=== PATIENT | female | born 1950 | race Caucasian/White ===

== ENCOUNTER → 2018-04-04 07:36 | Outpatient (CLI) | payer OTHER, SELFPAY ==
[2018-04-04 09:23] LABS: Add Manual Diff / Slide Review NO; Basophils Percent Auto 0.5 % (0-2); Eosinophils Percent Auto 3.2 % (2-4); Hematocrit 37.5 % (36-46); Hemoglobin 12.7 g/dL (12.0-16.0); Lymphocytes Percent Auto 43.6 % (25-40); Mean Corpuscular Hemoglobin 33.6 PG (26-34); Mean Corpuscular Volume 98.8 fL (80-100); Monocytes Percent Auto 10.9 % (3-14); Neutrophils Absolute Auto 2300 /uL (3000-5900); Neutrophils Percent Auto 41.8 % (50-75); Platelet Count 244 X10^3/uL (150-400); Red Blood Cell Count 3.79 X10^6/uL (4.0-5.2); Red Cell Distribution Width 13.7 % (11.6-14.8); White Blood Cell Count 5.5 X10^3/uL (4.5-11.0)
[2018-04-04 09:40] LABS: Alanine Aminotransferase 32 IU/L (9-52); Albumin 4.3 g/dL (3.5-5.0); Albumin Globulin Ratio 1.5 (1.0-2.8); Alkaline Phosphatase 66 U/L (38-126); Aspartate Aminotransferase 50 IU/L (14-36); BUN Creatinine Ratio 21.3 (6-22); Bilirubin Total 0.7 mg/dL (0.2-1.3); Blood Urea Nitrogen 17 mg/dL (7-17); Calcium 9.5 mg/dL (8.4-10.2); Carbon Dioxide 27 mmol/L (22-32); Chloride 105 mmol/L (98-107); Cholesterol 167 mg/dL (140-199); Estimated Glomerular Filt Rate > 60.0 mL/min (>60); Globulin 2.9 g/dL (1.7-4.1); Glucose 88 mg/dL (80-110); HDL Cholesterol 56 mg/dL (40-60); HEMOLYSIS < 15 (0-50); LDL Cholesterol Calculated 77 mg/dL (<100); Potassium 4.3 mmol/L (3.4-5.1); Sodium 141 mmol/L (137-145); Total Protein 7.2 g/dL (6.3-8.2); Triglycerides 171 mg/dL (35-150)
[2018-04-04 10:15] LABS: Thyroid Stimulating Hormone 3.42 uIU/mL (0.47-4.68)
== END ==
PROVIDERS: PCP Family Medicine; Visit Provider Family Medicine
DX: I48.2 Chronic atrial fibrillation (principal); I50.30 Unspecified diastolic (congestive) heart failure
CPT/HCPCS: 36415; 80053; 80061; 84443; 85025

== ENCOUNTER → 2018-11-21 09:09 | Outpatient (CLI) | payer OTHER, SELFPAY ==
--- NOTE | 2018-11-21 | DI.MG.S_ITS ---
BILATERAL DIGITAL SCREENING MAMMOGRAM 3D/2D WITH CAD: 11/21/2018 CLINICAL: Routine screening. Family history of breast cancer. Comparison is made to exams dated: 11/14/2016 mammogram, 10/05/2015 mammogram, 04/09/2014 mammogram, and 03/12/2013 mammogram - [facility]. The tissue of both breasts is heterogeneously dense. This may lower the sensitivity of mammography. Current study was also evaluated with a Computer Aided Detection (CAD) system. There is a mole marker on the left breast. No significant masses, calcifications, or other findings are seen in either breast. There has been no significant interval change. IMPRESSION: NEGATIVE There is no mammographic evidence of malignancy. A 1 year screening mammogram is recommended. This exam was interpreted at Station ID: [id number]. NOTE: For mammograms, a report in lay terms will be sent to the patient. Approximately 15% of breast malignancies will not be visualized mammographically. In the management of a palpable breast mass, a negative mammogram must not discourage biopsy of a clinically suspicious lesion. Electronically Signed By: Kevin magana/macario:11/21/2018 15:23:22 letter sent: Normal Exam ACR BI-RADS Category 1: Negative [id number]
== END ==
PROVIDERS: PCP Family Medicine; Visit Provider Family Medicine
DX: Z12.31 Encounter for screening mammogram for malignant neoplasm of breast (principal); Z80.3 Family history of malignant neoplasm of breast
CPT/HCPCS: 77063; 77067

== ENCOUNTER → 2019-04-17 07:42 | Outpatient (CLI) | payer OTHER, SELFPAY ==
[2019-04-17 09:47] LABS: Add Manual Diff / Slide Review NO; Basophils Absolute Auto 0 /uL (0-100); Basophils Percent Auto 0.5 % (0-2); Eosinophils Absolute Auto 100 /uL (0-450); Eosinophils Percent Auto 2.4 % (2-4); Hematocrit 38.8 % (36-46); Hemoglobin 13.2 g/dL (12.0-16.0); Lymphocytes Absolute Auto 2400 /uL (1100-4500); Lymphocytes Percent Auto 38.1 % (25-40); Mean Corpuscular HGB Conc 34.1 % (30-36); Mean Corpuscular Hemoglobin 33.1 PG (26-34); Mean Corpuscular Volume 96.9 fL (80-100); Monocytes Absolute Auto 700 /uL (0-900); Monocytes Percent Auto 11.5 % (3-14); Neutrophils Absolute Auto 2900 /uL (1500-7000); Neutrophils Percent Auto 47.5 % (50-75); Platelet Count 265 X10^3/uL (150-400); Red Blood Cell Count 4.01 X10^6/uL (4.0-5.2); Red Cell Distribution Width 13.8 % (11.6-14.8); White Blood Cell Count 6.2 X10^3/uL (4.5-11.0)
[2019-04-17 10:14] LABS: Alanine Aminotransferase 26 IU/L (9-52); Albumin 4.4 g/dL (3.5-5.0); Albumin Globulin Ratio 1.5 (1.0-2.8); Alkaline Phosphatase 87 U/L (38-126); Aspartate Aminotransferase 47 IU/L (14-36); BUN Creatinine Ratio 28.6 (6-22); Bilirubin Total 0.5 mg/dL (0.2-1.3); Blood Urea Nitrogen 20 mg/dL (7-17); Calcium 9.7 mg/dL (8.4-10.2); Carbon Dioxide 26 mmol/L (22-32); Chloride 105 mmol/L (98-107); Cholesterol 170 mg/dL (140-199); Estimated Glomerular Filt Rate > 60.0 mL/min (>60); Glucose 83 mg/dL (80-110); HDL Cholesterol 58 mg/dL (40-60); HEMOLYSIS < 15 (0-50); LDL Cholesterol Calculated 75 mg/dL (<100); Potassium 4.4 mmol/L (3.4-5.1); Sodium 140 mmol/L (137-145); Total Protein 7.4 g/dL (6.3-8.2); Triglycerides 183 mg/dL (35-150)
== END ==
PROVIDERS: PCP Family Medicine; Visit Provider Family Medicine
DX: E78.5 Hyperlipidemia, unspecified (principal); I10 Essential (primary) hypertension; Z79.899 Other long term (current) drug therapy
CPT/HCPCS: 36415; 80053; 80061; 84443; 85025

== ENCOUNTER → 2020-08-17 07:43 | Outpatient (CLI) | payer OTHER, SELFPAY ==
[2020-08-17 08:28] LABS: Add Manual Diff / Slide Review NO; Basophils Absolute Auto 0 /uL (0-100); Basophils Percent Auto 0.4 % (0-2); Eosinophils Absolute Auto 200 /uL (0-450); Eosinophils Percent Auto 3.6 % (2-4); Hematocrit 40.1 % (36-46); Hemoglobin 13.2 g/dL (12.0-16.0); Lymphocytes Absolute Auto 2500 /uL (1100-4500); Lymphocytes Percent Auto 48.4 % (25-40); Mean Corpuscular HGB Conc 32.9 % (30-36); Mean Corpuscular Hemoglobin 32.4 PG (26-34); Mean Corpuscular Volume 98.4 fL (80-100); Monocytes Absolute Auto 600 /uL (0-900); Monocytes Percent Auto 11.1 % (3-14); Neutrophils Absolute Auto 1900 /uL (1500-7000); Neutrophils Percent Auto 36.5 % (50-75); Platelet Count 285 X10^3/uL (150-400); Red Blood Cell Count 4.08 X10^6/uL (4.0-5.2); Red Cell Distribution Width 13.9 % (11.6-14.8); White Blood Cell Count 5.2 X10^3/uL (4.5-11.0)
[2020-08-17 09:04] LABS: Alanine Aminotransferase 24 IU/L (<35); Albumin 4.5 g/dL (3.5-5.0); Albumin Globulin Ratio 1.4 (1.0-2.8); Alkaline Phosphatase 86 U/L (38-126); Aspartate Aminotransferase 45 IU/L (14-36); BUN Creatinine Ratio 25.4 (6-22); Bilirubin Total 0.6 mg/dL (0.2-1.3); Blood Urea Nitrogen 18 mg/dL (7-17); Calcium 9.7 mg/dL (8.4-10.2); Carbon Dioxide 30 mmol/L (22-32); Chloride 102 mmol/L (98-107); Cholesterol 198 mg/dL (140-199); Estimated Glomerular Filt Rate > 60.0 mL/min (>60); Globulin 3.3 g/dL (1.7-4.1); Glucose 95 mg/dL (80-110); HDL Cholesterol 73 mg/dL (40-60); HEMOLYSIS < 15 (0-50); LDL Cholesterol Calculated 87 mg/dL (<100); Potassium 4.4 mmol/L (3.4-5.1); Sodium 136 mmol/L (137-145); Total Protein 7.8 g/dL (6.3-8.2); Triglycerides 188 mg/dL (35-150)
[2020-08-17 09:31] LABS: TSH w/ Reflex to FT4 3.05 uIU/mL (0.47-4.68)
== END ==
PROVIDERS: PCP Family Medicine; Referring Provider Family Medicine; Visit Provider Family Medicine
DX: E78.00 Pure hypercholesterolemia, unspecified (principal); I10 Essential (primary) hypertension; I48.0 Paroxysmal atrial fibrillation; M41.115 Juvenile idiopathic scoliosis, thoracolumbar region
CPT/HCPCS: 36415; 80053; 80061; 84443; 85025

== ENCOUNTER → 2020-09-09 09:40 | Outpatient (CLI) | payer OTHER, SELFPAY ==
--- NOTE | 2020-09-09 09:41 | DI.RAD.S_ITS ---
PROCEDURE: XR ANKLE LT MIN 3V INDICATIONS: left ankle pain TECHNIQUE: 3 views of the ankle were acquired. COMPARISON: None. FINDINGS: Bones: No fracture. Diffuse hindfoot and midfoot joint degeneration. Plantar and posterior calcaneal spurring. Tibiotalar joint degeneration and mild joint space narrowing. Soft tissues: Dystrophic calcifications project at the plantar aspect of the hindfoot and midfoot. IMPRESSION: Chronic and degenerative changes as above. No fracture. If the patient's symptoms do not improve recommend followup radiographs in 10 days to assess for healing sclerosis/occult injury. If the patient's pain or other symptoms persist, consider further evaluation with MRI Dictated by: Aaron Huntley M.D. on 09/09/2020 at 13:11 Approved by: Aaron Huntley M.D. on 09/09/2020 at 13:13
== END ==
PROVIDERS: PCP Family Medicine; Referring Provider Family Medicine; Visit Provider Family Medicine
DX: M25.572 Pain in left ankle and joints of left foot (principal)
CPT/HCPCS: 73610

== ENCOUNTER 2020-10-03 14:11 | Emergency (ER) | payer OTHER, SELFPAY ==
[2020-10-03 14:20] VITALS: BP 138/82; PULSE 74; RESP 14; TEMP 36.7; O2SAT 98; BMI 31.5
--- NOTE | 2020-10-03 14:26 | ED_ITS ---
HPI - Skin/Abscess/Foreign Bdy <NUBIA Nielson - Last Filed: 10/03/20 15:47> General Chief complaint: Skin/Abscess/Foreign Body Stated complaint: Rash On Legs, Moving Up Body Time Seen by Provider: 10/03/20 14:18 Source: patient Mode of arrival: Ambulatory Limitations: no limitations History of Present Illness HPI narrative: 69yo female with history of a hysterectomy, cholecystectomy, AFib (pacemaker, ablation, currently on Eliquis) and HLD, presents to the ED for a rash on her lower legs the continues to spread. She states this started approximately 2 days ago on her left lower leg. She noticed it spread to both legs, up toward her thighs, and is now below her breast on her arms bilaterally. She denies any itching, pain, or burning. Patient denies any excessive exercis e recently. She denies any other symptoms such as fever, chills, cough, nausea, vomiting, diarrhea, chest pain, shortness of breath, dizziness, syncope, bleeding, or any other concerns. Related Data Home Medications Medication Instructions Recorded Confirmed niacin 500 mg PO #0 02/28/17 10/03/20 acetaminophen [Tylenol Extra 500 mg PO Q6HP PRN #0 05/25/17 10/03/20 Strength] calcium 2 tab PO tab 05/16/18 10/03/20 carbonate,citrate-magnesium oxide 200 mg calcium-50 mg tablet omega-3 fatty acids 1,000 mg 1,000 mg PO DAILY 05/16/18 10/03/20 capsule amlodipine 5 mg tablet 5 mg PO DAILY tab 07/29/20 10/03/20 Previous Rx's Medication Instructions Recorded flecainide 50 mg PO BID #30 tab 01/03/18 metoprolol succinate [Toprol XL] 12.5 mg PO QDAY #30 tab 05/25/18 apixaban 5 mg tablet 5 mg PO BID #60 tab 02/26/20 lisinopril 20 1 tab PO DAILY #90 tab 07/29/20 mg-hydrochlorothiazide 25 mg tablet atorvastatin 20 mg tablet 20 mg PO HS #90 tab 07/31/20 Allergies Allergy/AdvReac Type Severity Reaction Status Date / Time No Known Drug Allergies Allergy Verified 10/03/20 14:24 Review of Systems <NUBIA Nielson - Last Filed: 10/03/20 15:47> Review of Systems Narrative: REVIEW OF SYSTEMS: GENERAL: Denies fever or chills. HENT: Denies headaches or rhinorrhea. EYE: Denies vision changes. MUSCULOSKELETAL: Denies trauma or pain. INTEGUMENTARY: Reports rash, see HPI. Patient History <NUBIA Nielson - Last Filed: 10/03/20 15:47> Medical History Chronic atrial fibrillation (03/28/17) Chronic systolic congestive heart failure (03/28/17) Essential hypertension (03/28/17) Headache Heart failure with preserved ejection fraction, NYHA class II Juvenile idiopathic scoliosis of thoracolumbar region (09/15/15) Paroxysmal atrial fibrillation (01/03/18) Pure hypercholesterolemia (09/15/15) Radiculopathy of cervical spine Surgical History Anesthesia History of hip replacement History of hip replacement History of knee replacement History of knee replacement Status post cholecystectomy Status post hysterectomy Torn rotator cuff (~2010) Family History Brother Age: 78 Pacemaker Hypertension High cholesterol Brother Age: 78 Hypertension High cholesterol Father Heart disease Mother High cholesterol Sister Age: 81 Hypertension High cholesterol Social History marital status: Smoking Status: Never smoker alcohol intake: current (ON OCCASION ) substance use type: does not use Smoking Status: Never smoker alcohol intake frequency: 0-2 drinks per day Substance Use Type: does not use Exam <NUBIA Nielson - Last Filed: 10/03/20 15:47> Initial Vital Signs Initial Vital Signs: Vital Signs Temperature 98.1 F 10/03/20 14:20 Pulse Rate 74 10/03/20 14:20 Respiratory Rate 14 10/03/20 14:20 Blood Pressure 138/82 10/03/20 14:20 Pulse Oximetry 98 10/03/20 14:20 PHYSICAL EXAMINATION: GENERAL: Awake and alert, answers questions promptly. HENT: Normocephalic, atraumatic. Ear canals patent. Oral mucosa is pink and moist. No bleeding from gums. EYES: Conjunctiva pink, sclera white, no periorbital swelling. CHEST: Normal to inspection and without deformities. CARDIOVASCULAR: S1 and S2 sounds normal. Irregular- Regular rate and rhythm, no murmurs, clicks, or bruits. No pedal edema. RESPIRATORY: Normal respiratory rate, trachea midline, airway patent. No stridor, nasal flaring or accessory muscle use. Lungs are clear in all maciel without wheeze, rhonchi, or crackles. GASTROINTESTINAL: Bowel sounds normoactive. Abdomen is soft and non-tender. No organomegaly. MUSCULOSKELETAL: Normal gait and coordination. Equal tone and mass bilaterally. EXTREMITIES: CMS intact. Moves all extremities. Pedal pulses 2+ and equal bilaterally, no significant pedal edema. SKIN: Warm, dry, soft. Diffuse nonblanching petechiae noted to lower extremities, larger consultation of petechiae noticed to lower legs, small amout extends below sock line. Petechiae does extend up past knees and into thighs. Light petechiae noted on in her arms bilaterally and chest. No petechiae on abdomen. No pain to palpation of these areas, no significant swelling. NEURO: Alert and Oriented X 3. Good coordination. No ataxia, or sensory deficits, or cognitive issues. PSYCH: Appropriate affect and mood. NEURO: Alert and Oriented X 3. Good coordination. PSYCH: Appropriate affect and mood. <Julián River DO - Last Filed: 10/03/20 16:14> Initial Vital Signs Initial Vital Signs: Vital Signs Temperature 98.1 F 10/03/20 14:20 Pulse Rate 74 10/03/20 14:20 Respiratory Rate 14 10/03/20 14:20 Blood Pressure 138/82 10/03/20 14:20 Pulse Oximetry 98 10/03/20 14:20 Course <NUBIA Nielson - Last Filed: 10/03/20 15:47> Orders Ordered: ED Orders 10/03/20 14:28 Complete Blood Count AUTO DIFF Stat Comprehensive Metabolic Panel Stat PTT [Partial Thromboplastin Time] Stat Prothrombin Time INR Stat Consultations Consultation #1: Consulted with Dr. River discussed test, test results, plan of care. Vital Signs Vital signs: Vital Signs - 8 hr 10/03/20 14:20 10/03/20 15:26 Temperature 98.1 F Pulse Rate 74 65 Respiratory Rate 14 16 Blood Pressure 138/82 140/70 Pulse Oximetry 98 98 <Julián HandleycherDO - Last Filed: 10/03/20 16:14> Orders Ordered: ED Orders 10/03/20 14:28 Complete Blood Count AUTO DIFF Stat Comprehensive Metabolic Panel Stat PTT [Partial Thromboplastin Time] Stat Prothrombin Time INR Stat Vital Signs Vital signs: Vital Signs - 8 hr 10/03/20 14:20 10/03/20 15:26 Temperature 98.1 F Pulse Rate 74 65 Respiratory Rate 14 16 Blood Pressure 138/82 140/70 Pulse Oximetry 98 98 MDM - Skin/Abscess/Foreign Bdy <Federica NUBIA Bower - Last Filed: 10/03/20 15:47> Medical Records Attestation: I reviewed the patient's medical records. Lab Data Attestation: I reviewed the patient's lab results. Result diagrams: 10/03/20 14:28 10/03/20 14:28 Labs: Lab Results 10/03/20 10/03/20 10/03/20 Range/Units 14:28 14:28 14:28 WBC 8.1 (4.5-11.0) X10^3/uL RBC 4.01 (4.0-5.2) X10^6/uL Hgb 13.2 (12.0-16.0) g/dL Hct 39.4 (36-46) % MCV 98.3 (80-100) fL MCH 33.0 (26-34) PG MCHC 33.6 (30-36) % RDW 14.3 (11.6-14.8) % Plt Count 278 (150-400) X10^3/uL Neut % (Auto) 44.3 L (50-75) % Lymph % (Auto) 41.3 H (25-40) % [place] % (Auto) 10.2 (3-14) % Eos % (Auto) 3.4 (2-4) % Baso % (Auto) 0.8 (0-2) % Neut # (Auto) 3600 (6331-4904) /uL Lymph # (Auto) 3400 (8774-5268) /uL [place] # (Auto) 800 (0-900) /uL Eos # (Auto) 300 (0-450) /uL Baso # (Auto) 100 (0-100) /uL PT 13.1 H (10.1-12.7) SECONDS INR 1.1 (0.9-1.3) APTT 41 H (26.4-36.2) SECONDS Sodium 136 L (137-145) mmol/L Potassium 4.1 (3.4-5.1) mmol/L Chloride 101 (98-107) mmol/L Carbon Dioxide 26 (22-32) mmol/L BUN 17 (7-17) mg/dL Creatinine 0.69 (0.52-1.04) mg/dL Estimated GFR > 60.0 (>60) mL/min BUN/Creatinine Ratio 24.6 H (6-22) Glucose 100 (80-110) mg/dL Calcium 9.6 (8.4-10.2) mg/dL Total Bilirubin 0.4 (0.2-1.3) mg/dL AST 48 H (14-36) IU/L ALT 26 (<35) IU/L Alkaline Phosphatase 97 (38-126) U/L Total Protein 8.0 (6.3-8.2) g/dL Albumin 4.8 (3.5-5.0) g/dL Globulin 3.2 (1.7-4.1) g/dL Albumin/Globulin Ratio 1.5 (1.0-2.8) MDM Narrative Medical decision making narrative: 69-year-old female currently and others, presented to the emergency department for petechiae or rashes the past 2 days. I am unsure the exact cause of this. Less likely ITP, leukemia or other clotting disorder due to normal labs. Less likely lupus, cytomegalovirus, or other viral etiology due to lack of other symptoms such as rhinorrhea, headache, swollen joints, fatigue, or other laboratory abnormalities. Differential also includes exercise/heat-induced purpura, but less likely as patient does not report any significant exercise or being exposed increased heat such as hot tub use. Patient is well-appearing, hemodynamically stable without fever or tachycardia. She was encouraged to follow up with her primary care provider in the next 1-2 weeks for further evaluation. ED precautions given for new or worsening symptoms. She agreed to plan of care verbalized understanding. <Julián River DO - Last Filed: 10/03/20 16:14> Lab Data Labs: Lab Results 10/03/20 10/03/20 10/03/20 Range/Units 14:28 14:28 14:28 WBC 8.1 (4.5-11.0) X10^3/uL RBC 4.01 (4.0-5.2) X10^6/uL Hgb 13.2 (12.0-16.0) g/dL Hct 39.4 (36-46) % MCV 98.3 (80-100) fL MCH 33.0 (26-34) PG MCHC 33.6 (30-36) % RDW 14.3 (11.6-14.8) % Plt Count 278 (150-400) X10^3/uL Neut % (Auto) 44.3 L (50-75) % Lymph % (Auto) 41.3 H (25-40) % [place] % (Auto) 10.2 (3-14) % Eos % (Auto) 3.4 (2-4) % Baso % (Auto) 0.8 (0-2) % Neut # (Auto) 3600 (6156-8394) /uL Lymph # (Auto) 3400 (2299-5103) /uL [place] # (Auto) 800 (0-900) /uL Eos # (Auto) 300 (0-450) /uL Baso # (Auto) 100 (0-100) /uL PT 13.1 H (10.1-12.7) SECONDS INR 1.1 (0.9-1.3) APTT 41 H (26.4-36.2) SECONDS Sodium 136 L (137-145) mmol/L Potassium 4.1 (3.4-5.1) mmol/L Chloride 101 (98-107) mmol/L Carbon Dioxide 26 (22-32) mmol/L BUN 17 (7-17) mg/dL Creatinine 0.69 (0.52-1.04) mg/dL Estimated GFR > 60.0 (>60) mL/min BUN/Creatinine Ratio 24.6 H (6-22) Glucose 100 (80-110) mg/dL Calcium 9.6 (8.4-10.2) mg/dL Total Bilirubin 0.4 (0.2-1.3) mg/dL AST 48 H (14-36) IU/L ALT 26 (<35) IU/L Alkaline Phosphatase 97 (38-126) U/L Total Protein 8.0 (6.3-8.2) g/dL Albumin 4.8 (3.5-5.0) g/dL Globulin 3.2 (1.7-4.1) g/dL Albumin/Globulin Ratio 1.5 (1.0-2.8) Discharge Plan Departure Patient Disposition: Home Clinical Impression: Petechial rash Instructions: DI for Rash Activity Restrictions/Additional Instructions: Thank you for entrusting me with your care today. As discussed, your laboratory work is non-remarkable. I am unsure the exact cause of your rash. However, I suggest avoiding hot showers and baths for the next few days. Elevate your legs as much as possible. Please call your primary care provider until then you have been seen in the emergency department. Schedule follow-up in the next 1-2 weeks. Return emergency department for any new or worsening symptoms such as bleeding, pain, vomiting, or any other concerns. Prescriptions: No Action amlodipine 5 mg tablet 5 mg PO DAILY RF: 0 lisinopril-hydrochlorothiazide 20-25 mg tablet 1 tab PO DAILY Qty: 90 RF: 3 niacin 500 MG tablet 500 mg PO Qty: 0 RF: 0 acetaminophen [Tylenol Extra Strength] 500 MG tablet 500 mg PO Q6HP PRNQty: 0 RF: 0 flecainide 50 MG tablet 50 mg PO BID Qty: 30 RF: 0 metoprolol succinate [Toprol XL] 25 mg tablet extended release 24 hr 12.5 mg PO QDAY Qty: 30 RF: 1 Eliquis 5 mg tablet 5 mg PO BID Qty: 60 RF: 11 atorvastatin [Lipitor] 20 mg tablet 20 mg PO HS Qty: 90 RF: 1 omega-3 fatty acids [Fish Oil Concentrate] 1,000 mg capsule 1,000 mg PO DAILY RF: 0 calcium carb and citrat-mag ox 200 mg calcium- 50 mg tablet 2 tab PO RF: 0 Referrals: Alonso Cervantes MD [Primary Care Provider] - <Julián River DO - Last Filed: 10/03/20 16:14> Cosign ED Attending Cosignature Attestation: Dr River Co-Sign Statement: I was available for consultation during this patient's emergency department visit. This chart is signed by myself for administrative purposes only. I did not have direct contact with this patient during this visit. They were seen independently by the APC.
[2020-10-03 14:38] LABS: Add Manual Diff / Slide Review NO; Basophils Absolute Auto 100 /uL (0-100); Basophils Percent Auto 0.8 % (0-2); Eosinophils Absolute Auto 300 /uL (0-450); Eosinophils Percent Auto 3.4 % (2-4); Hematocrit 39.4 % (36-46); Hemoglobin 13.2 g/dL (12.0-16.0); Lymphocytes Absolute Auto 3400 /uL (1100-4500); Lymphocytes Percent Auto 41.3 % (25-40); Mean Corpuscular HGB Conc 33.6 % (30-36); Mean Corpuscular Volume 98.3 fL (80-100); Monocytes Absolute Auto 800 /uL (0-900); Monocytes Percent Auto 10.2 % (3-14); Neutrophils Absolute Auto 3600 /uL (1500-7000); Neutrophils Percent Auto 44.3 % (50-75); Platelet Count 278 X10^3/uL (150-400); Red Blood Cell Count 4.01 X10^6/uL (4.0-5.2); Red Cell Distribution Width 14.3 % (11.6-14.8); White Blood Cell Count 8.1 X10^3/uL (4.5-11.0)
[2020-10-03 14:47] LABS: INR 1.1 (0.9-1.3); Prothrombin Time 13.1 SECONDS (10.1-12.7)
[2020-10-03 14:50] LABS: Alanine Aminotransferase 26 IU/L (<35); Albumin 4.8 g/dL (3.5-5.0); Albumin Globulin Ratio 1.5 (1.0-2.8); Alkaline Phosphatase 97 U/L (38-126); Aspartate Aminotransferase 48 IU/L (14-36); BUN Creatinine Ratio 24.6 (6-22); Bilirubin Total 0.4 mg/dL (0.2-1.3); Blood Urea Nitrogen 17 mg/dL (7-17); Calcium 9.6 mg/dL (8.4-10.2); Carbon Dioxide 26 mmol/L (22-32); Chloride 101 mmol/L (98-107); Estimated Glomerular Filt Rate > 60.0 mL/min (>60); Globulin 3.2 g/dL (1.7-4.1); Glucose 100 mg/dL (80-110); HEMOLYSIS < 15 (0-50); PTT Partial Thromboplastin Tim 41 SECONDS (26.4-36.2); Potassium 4.1 mmol/L (3.4-5.1); Sodium 136 mmol/L (137-145)
[2020-10-03 15:26] VITALS: BP 140/70; PULSE 65; RESP 16; O2SAT 98
== END 2020-10-03 15:27 | disposition home or self-care (01) ==
PROVIDERS: Emergency Provider Nurse Practitioner; PCP Family Medicine
DX: R23.3 Spontaneous ecchymoses (principal); I48.91 Unspecified atrial fibrillation; Z79.01 Long term (current) use of anticoagulants
CPT/HCPCS: 36415; 80053; 85025; 85610; 85730; 99281; 99283

== ENCOUNTER 2021-02-27 11:31 | Emergency (ER) | payer OTHER, SELFPAY ==
[2021-02-27 11:40] VITALS: BP 186/91; PULSE 70; RESP 16; TEMP 36.7; O2SAT 98; BMI 32.1
--- NOTE | 2021-02-27 11:42 | ED.GENADULT ---
HPI - General Adult General Chief complaint: Fall Stated complaint: Ground level fall today Time Seen by Provider: 02/27/21 11:42 History of Present Illness HPI narrative: 70-year-old woman with a history of coronary artery disease, chronic atrial fibrillation currently anticoagulated on apixaban, hypertension, hyperlipidemia who presents after falling today. She reports that she was out walking her dog and was distracted by talking with her friend stumbled over the cement and fell forward. She was unable to compensate and landed fully on her lower chin and her upper lip. She did not lose consciousness. She notes chin upper lip jaw and neck pain. She was able to get herself off the ground into the emergency department. She has no noting some mild midsternal/sternum pain without dyspnea. She describes chronic shoulder pain that does not seem to be worse than her baseline. No hip, low back, pelvis, knee ankle elbow or wrist pain appreciated. Related Data Home Medications Medication Instructions Recorded Confirmed niacin 500 mg PO #0 02/28/17 02/25/21 acetaminophen [Tylenol Extra 500 mg PO Q6HP PRN #0 05/25/17 02/25/21 Strength] calcium 2 tab PO tab 05/16/18 02/25/21 carbonate,citrate-magnesium oxide 200 mg calcium-50 mg tablet omega-3 fatty acids 1,000 mg 1,000 mg PO DAILY 05/16/18 02/25/21 capsule Previous Rx's Medication Instructions Recorded flecainide 50 mg PO BID #30 tab 01/03/18 metoprolol succinate [Toprol XL] 12.5 mg PO QDAY #30 tab 05/25/18 lisinopril 20 1 tab PO DAILY #90 tab 07/29/20 mg-hydrochlorothiazide 25 mg tablet atorvastatin 20 mg tablet See Rx Instructions .ROUTE 01/29/21 .COMPLEX #90 tab apixaban 5 mg tablet 5 mg PO BID #60 tab 02/09/21 oxycodone-acetaminophen 1 tab PO Q6H PRN 7 Days #20 tab 02/27/21 Allergies Allergy/AdvReac Type Severity Reaction Status Date / Time No Known Drug Allergies Allergy Verified 02/27/21 11:42 Review of Systems Review of Systems Narrative: Pertinent positive and negative findings as per HPI Remainder of review of systems is otherwise unremarkable for Constitutional: Fevers, chills, weakness ENT: No sore throat, neck pain, ear pain CV: Chest pain, palpitations, Respiratory: Cough, wheeze, dyspnea GI: Nausea, vomiting, diarrhea, : Dysuria, hematuria, Patient History Medical History Chronic atrial fibrillation (03/28/17) Chronic systolic congestive heart failure (03/28/17) Essential hypertension (03/28/17) Headache Heart failure with preserved ejection fraction, NYHA class II Juvenile idiopathic scoliosis of thoracolumbar region (09/15/15) Paroxysmal atrial fibrillation (01/03/18) Pure hypercholesterolemia (09/15/15) Radiculopathy of cervical spine Surgical History Anesthesia History of hip replacement History of hip replacement History of knee replacement History of knee replacement Status post cholecystectomy Status post hysterectomy Torn rotator cuff (~2010) Family History Brother Age: 79 Pacemaker Hypertension High cholesterol Brother Age: 79 Hypertension High cholesterol Father Heart disease Mother High cholesterol Sister Age: 82 Hypertension High cholesterol Social History marital status: Smoking Status: Never smoker alcohol intake: current (ON OCCASION ) substance use type: does not use Smoking Status: Never smoker alcohol intake frequency: 0-2 drinks per day Substance Use Type: does not use Exam Narrative Exam Narrative: General: Mild distress secondary to upper lip swelling and pain. Able to give a complete and coherent history. Well-nourished well-developed HEENT: Moist mucous membranes, normal sclera with reactive pupils, upper lip with an abrasion on the buccal surface midline but no actual laceration. Dentition is intact. Moderate swelling. Tender along the entire mandible including bilateral TMJ joints. No bruising or ecchymosis under the tongue. No skull tenderness to palpation. Minor abrasion just under the mentum, no laceration Neck: Significant midline tenderness at C2 and C3 with moderate tenderness at bilateral occipital insertions and C4-5 and 6. Respiratory: Lungs are clear to auscultation, no wheezing no rales no rhonchi. Full and symmetrical air movement Cardiac: Regular rate and rhythm no murmurs no bruits Abdomen: Soft, nontender, good bowel tones, no flank pain Skin: Warm and dry, no rashes Neurologic: Grossly neurologically intact with no obvious asymmetries or abnormalities Extremities: No trauma to upper or lower extremities Psych: Cooperative, appropriate insight and affect Initial Vital Signs Initial Vital Signs: Vital Signs Temperature 98.0 F 02/27/21 11:40 Pulse Rate 70 02/27/21 11:40 Respiratory Rate 16 02/27/21 11:40 Blood Pressure 186/91 H 02/27/21 11:40 Pulse Oximetry 98 02/27/21 11:40 Course Orders Ordered: ED Orders 02/27/21 11:51 XR chest 2V Stat 02/27/21 11:52 CT cervical spine wo con Stat CT facial bones wo con Stat CT head/brain wo con Stat Discontinued Medications Oxycodone/Acetaminophen (Oxycodone/Acetaminophen 5/325 Tablet) 1 tab PO NOW ONE Stop: 02/27/21 11:52 Last Admin: 02/27/21 11:57 Dose: 1 tab Documented by: HUNTER Vital Signs Vital signs: Vital Signs - 8 hr 02/27/21 11:40 Temperature 98.0 F Pulse Rate 70 Respiratory Rate 16 Blood Pressure 186/91 H Pulse Oximetry 98 Medical Decision Making Medical Records Medical records reviewed: Yes I reviewed the patient's medical records. Lab Data Lab results reviewed: Yes I reviewed the patient's lab results. Imaging Data Head CT: Radiologist's Impression: FINDINGS: Image quality: Excellent. CSF spaces: Basal cisterns are patent. No extra-axial fluid collections. Ventricles are normal in size and shape. Brain: No midline shift. No intracranial masses or hemorrhage. Salguero-white matter interface is normal. Skull and face: Calvarium and visualized facial bones are intact, without suspicious lesions. Sinuses: Visualized sinuses and mastoids are clear. IMPRESSION: Negative for acute stroke, hemorrhage, or mass. No evidence of significant intracranial sequelae of acute trauma. Dictated by: Randall Quiros M.D. on 02/27/2021 at 11:[address]: Radiologist's Impression: INDINGS: Image quality: Metal artifact from teeth. Otherwise excellent. Bones and teeth: Orbital mario are intact. Sinus mario show no fracture or deformity. Nasal bones and septum are intact. Visualized portions of the mandible demonstrate no fractures or subluxation. Zygomatic arches are intact. Pterygoid plates are intact. Visualized portions of the skull base and auditory canals are intact. Sinuses: Paranasal sinuses are aerated, without fluid levels, mucosal thickening, or mucoceles. Mastoid air cells are aerated. Soft tissues: No edema, masses, or fluid collections. No enlarged lymph nodes. No soft tissue lacerations or debris. Vascular: Visualized vascular structures appear normal in the absence of contrast. Bony vascular foramina and canals are intact. IMPRESSION: No evidence of displaced facial bone fracture or mandibular fracture. Dictated by: Randall Quiros M.D. on 02/27/2021 at 12:03 CT - cervical spine: Radiologist's Impression: FINDINGS: Image quality: Excellent. Bones: No fractures or dislocations. Visualized superior ribs are intact. Prominent hypertrophic right C2-C3 facet arthropathy. Uncovertebral joint osteophytes narrow the bony foramina of C3-C4 through C5-C6. Soft tissues: Prevertebral soft tissues are normal in thickness. No paravertebral hematomas. No apical pneumothoraces. IMPRESSION: No evidence of cervical fracture or dislocation. Cervical spondylitic change. Dictated by: Randall Quiros M.D. on 02/27/2021 at 12:05 Chest x-ray: Radiologist's Impression: FINDINGS: Surgical changes and devices: Pacemaker, placed since the previous study. Lungs and pleura: Lungs are clear. No pleural effusions or pneumothorax. Mediastinum: Mediastinal contours are normal. Heart size is normal. Bones and chest wall: No suspicious bony abnormalities. Soft tissues appear unremarkable. IMPRESSION: No evidence acute pulmonary process. Dictated by: Randall Quiros M.D. on 02/27/2021 at 12:01 [facility] Narrative Medical decision making narrative: Emergency Medicine: Utilization of CT for Minor Blunt Head Trauma (Adult) Patient is 18 or older, presenting with minor blunt head trauma. Head CT was ordered by an emergency personal care worker for trauma because Reasons: Patient is 65 or older Patient taking anticoagulant medication 70 year old woman with mechanical fall landing forward on her chin. She is on Eliquis for paroxysmal atrial fibrillation. She is having jaw pain neck pain and sternal pain. Imaging of all of those areas is unremarkable. CT scan of the brain does not show any intracranial bleeding. Her pain was moderately well controlled with a single Percocet as well as an ice pack. Did review anticipatory guidance for expected healing including the fact that she will hurt more tomorrow. Questions are answered. There is no evidence of additional trauma and she is safe for home discharge Discharge Plan Departure Patient Disposition: Home Clinical Impression: Fall Qualifiers: Encounter type: initial encounter Qualified Code(s): W19.XXXA - Unspecified fall, initial encounter Chin contusion Qualifiers: Encounter type: initial encounter Qualified Code(s): S00.83XA - Contusion of other part of head, initial encounter Contusion of lip Qualifiers: Encounter type: initial encounter Qualified Code(s): S00.531A - Contusion of lip, initial encounter Strain of neck Qualifiers: Encounter type: initial encounter Qualified Code(s): S16.1XXA - Strain of muscle, fascia and tendon at neck level, initial encounter Contusion of sternum Qualifiers: Encounter type: initial encounter Qualified Code(s): S20.219A - Contusion of unspecified front wall of thorax, initial encounter Instructions: DI for Contusion Activity Restrictions/Additional Instructions: Thank you for coming in today You did not break anything today. The abrasions to your chin and your upper lip are going to heal nicely. I would expect that your jaw joints are going to hurt more tomorrow. There is no bleeding inside her brain. You did not break any bones in your neck. After this hard to fall, it is always worse in the next 24-48 hours. Please keep as active in mobile as you can. For pain you can use Tylenol or 1-2 Percocet for severe pain. When you are using Percocet I would recommend a stool softener. Narcotics always cause constipation. Please continue all of your other medications as scheduled I hope you heal quickly Prescriptions: New oxycodone-acetaminophen 5-325 mg tablet 1 tab PO Q6H PRN (Reason: pain) 7 Days Qty: 20 RF: 0 No Action lisinopril-hydrochlorothiazide 20-25 mg tablet 1 tab PO DAILY Qty: 90 RF: 3 niacin 500 MG tablet 500 mg PO Qty: 0 RF: 0 acetaminophen [Tylenol Extra Strength] 500 MG tablet 500 mg PO Q6HP PRNQty: 0 RF: 0 flecainide 50 MG tablet 50 mg PO BID Qty: 30 RF: 0 metoprolol succinate [Toprol XL] 25 mg tablet extended release 24 hr 12.5 mg PO QDAY Qty: 30 RF: 1 atorvastatin 20 mg tablet See Rx Instructions .ROUTE .COMPLEX Qty: 90 RF: 2 Eliquis 5 mg tablet 5 mg PO BID Qty: 60 RF: 3 omega-3 fatty acids [Fish Oil Concentrate] 1,000 mg capsule 1,000 mg PO DAILY RF: 0 calcium carb and citrat-mag ox 200 mg calcium- 50 mg tablet 2 tab PO RF: 0 Referrals: Alonso Cervantes MD [Primary Care Provider] -
--- NOTE | 2021-02-27 11:51 | DI.RAD.S_ITS ---
PROCEDURE: XR CHEST 2V INDICATIONS: fall forward, noting sternal pain TECHNIQUE: 2 views of the chest were acquired. COMPARISON: [facility], , CHEST 2 VIEW, 02/28/2017, 16:29. FINDINGS: Surgical changes and devices: Pacemaker, placed since the previous study. Lungs and pleura: Lungs are clear. No pleural effusions or pneumothorax. Mediastinum: Mediastinal contours are normal. Heart size is normal. Bones and chest wall: No suspicious bony abnormalities. Soft tissues appear unremarkable. IMPRESSION: No evidence acute pulmonary process. Dictated by: Randall Quiros M.D. on 02/27/2021 at 12:01 Approved by: Randall Quiros M.D. on 02/27/2021 at 12:02
--- NOTE | 2021-02-27 11:52 | DI.CT.S_ITS ---
PROCEDURE: CT CERVICAL SPINE WO CON INDICATIONS: fall landing on chin, pain C2 and C3 TECHNIQUE: Noncontrast 3 mm thick sections acquired from the skull base to the T4 level. Sagittal and coronal reformats were then constructed. For radiation dose reduction, the following was used: automated exposure control, adjustment of mA and/or kV according to patient size. COMPARISON: [facility], CT, C-SPINE WITHOUT CONTRAST, 08/12/2010, 15:53. FINDINGS: Image quality: Excellent. Bones: No fractures or dislocations. Visualized superior ribs are intact. Prominent hypertrophic right C2-C3 facet arthropathy. Uncovertebral joint osteophytes narrow the bony foramina of C3-C4 through C5-C6. Soft tissues: Prevertebral soft tissues are normal in thickness. No paravertebral hematomas. No apical pneumothoraces. IMPRESSION: No evidence of cervical fracture or dislocation. Cervical spondylitic change. Dictated by: Randall Quiros M.D. on 02/27/2021 at 12:05 Approved by: Randall Quiros M.D. on 02/27/2021 at 12:07
--- NOTE | 2021-02-27 11:52 | DI.CT.S_ITS ---
PROCEDURE: CT FACIAL BONES WO CON INDICATIONS: fall landing on chin, bilateral jaw and TMJ pain TECHNIQUE: Noncontrast 2.5 mm thick axial images acquired from the mandible through the frontal sinuses, with coronal and sagittal reformatting. For radiation dose reduction, the following was used: automated exposure control, adjustment of mA and/or kV according to patient size. COMPARISON: [facility], CT, FACIAL BONES WO CONTRAST, 08/12/2010, 15:53. FINDINGS: Image quality: Metal artifact from teeth. Otherwise excellent. Bones and teeth: Orbital mario are intact. Sinus mario show no fracture or deformity. Nasal bones and septum are intact. Visualized portions of the mandible demonstrate no fractures or subluxation. Zygomatic arches are intact. Pterygoid plates are intact. Visualized portions of the skull base and auditory canals are intact. Sinuses: Paranasal sinuses are aerated, without fluid levels, mucosal thickening, or mucoceles. Mastoid air cells are aerated. Soft tissues: No edema, masses, or fluid collections. No enlarged lymph nodes. No soft tissue lacerations or debris. Vascular: Visualized vascular structures appear normal in the absence of contrast. Bony vascular foramina and canals are intact. IMPRESSION: No evidence of displaced facial bone fracture or mandibular fracture. Dictated by: Randall Quiros M.D. on 02/27/2021 at 12:03 Approved by: Randall Quiros M.D. on 02/27/2021 at 12:05
--- NOTE | 2021-02-27 11:52 | DI.CT.S_ITS ---
PROCEDURE: CT HEAD/BRAIN WO CON INDICATIONS: fall, landing on chin, anticoagulated on apixaban TECHNIQUE: Noncontrast 4.5 mm thick angled axial sections acquired from the foramen magnum to the vertex, with coronal and sagittal reformats. For radiation dose reduction, the following was used: automated exposure control, adjustment of mA and/or kV according to patient size. COMPARISON: None. FINDINGS: Image quality: Excellent. CSF spaces: Basal cisterns are patent. No extra-axial fluid collections. Ventricles are normal in size and shape. Brain: No midline shift. No intracranial masses or hemorrhage. Salguero-white matter interface is normal. Skull and face: Calvarium and visualized facial bones are intact, without suspicious lesions. Sinuses: Visualized sinuses and mastoids are clear. IMPRESSION: Negative for acute stroke, hemorrhage, or mass. No evidence of significant intracranial sequelae of acute trauma. Dictated by: Randall Quiros M.D. on 02/27/2021 at 11:57 Approved by: Randall Quiros M.D. on 02/27/2021 at 11:59
--- NOTE | 2021-02-27 11:53 | PC.NURSE ---
Placed in cervical hard collar
[2021-02-27] MEDS: OXYCODONE/ACETAMINOPHEN 5/325 TABLET 1 TAB PO (11:57)
--- NOTE | 2021-02-27 13:55 | PC.NURSE ---
c collar cleared by Dr De La Fuente
[2021-02-27 14:26] VITALS: BP 162/78; PULSE 76; RESP 14; O2SAT 99
== END 2021-02-27 14:27 | disposition home or self-care (01) ==
PROVIDERS: Emergency Provider Emergency Medicine; PCP Family Medicine
DX: R07.89 Other chest pain (principal); S00.83XA Contusion of other part of head, initial encounter; S00.531A Contusion of lip, initial encounter; S16.1XXA Strain of muscle, fascia and tendon at neck level, initial encounter; S20.219A Contusion of unspecified front wall of thorax, initial encounter; W19.XXXA Unspecified fall, initial encounter; Z79.01 Long term (current) use of anticoagulants
CPT/HCPCS: 70450; 70486; 71046; 72125; 99284

== ENCOUNTER 2021-06-13 09:00 | Emergency (ER) | payer OTHER, SELFPAY ==
[2021-06-13] VITALS (7 sets, daily range): BP systolic 107–143; BP diastolic 56–67; PULSE 69–80; RESP 17–21; TEMP 36.1–36.6; O2SAT 95–100; BMI 32.3
--- NOTE | 2021-06-13 09:35 | ED.GENADULT ---
HPI - General Adult General Chief complaint: Dizziness Stated complaint: very low blood pressure since this morning Time Seen by Provider: 06/13/21 09:12 Source: patient and other Mode of arrival: Ambulatory Limitations: no limitations History of Present Illness HPI narrative: Patient is 70-year-old female history of atrial fibrillation on Eliquis and a pacemaker presenting today with low blood pressure. She woke up this morning and has had at least 10 episodes of nonbloody watery diarrhea. She got up to feed the dog she felt a little dizzy lightheaded and foggy. She took her blood pressure shows a systolic in the 80s. She rechecked it later it remained in the 80s she then called and use her neighbors blood pressure cough and was also low. At which point she and her neighbor walked to the emergency department. Her blood pressure is now within normal limits at 143/65. She has no chest pain or palpitations no dizziness lightheadedness weakness numbness or tingling. Related Data Home Medications Medication Instructions Recorded Confirmed niacin 500 mg tablet 500 mg PO #0 02/28/17 02/25/21 acetaminophen 500 mg tablet 500 mg PO Q6HP PRN #0 05/25/17 02/25/21 (Tylenol Extra Strength) calcium 2 tab PO tab 05/16/18 02/25/21 carbonate,citrate-magnesium oxide 200 mg calcium-50 mg tablet omega-3 fatty acids 1,000 mg 1,000 mg PO DAILY 05/16/18 02/25/21 capsule (Fish Oil Concentrate) Previous Rx's Medication Instructions Recorded flecainide 50 mg tablet 50 mg PO BID #30 tab 01/03/18 metoprolol succinate 25 mg 12.5 mg PO QDAY #30 tab 05/25/18 tablet,extended release 24 hr (Toprol XL) lisinopril 20 1 tab PO DAILY #90 tab 07/29/20 mg-hydrochlorothiazide 25 mg tablet atorvastatin 20 mg tablet See Rx Instructions .ROUTE 01/29/21 .COMPLEX #90 tab apixaban 5 mg tablet (Eliquis) 5 mg PO BID #60 tab 06/07/21 Allergies Allergy/AdvReac Type Severity Reaction Status Date / Time No Known Drug Allergies Allergy Verified 02/27/21 11:42 Review of Systems Review of Systems Narrative: GENERAL: Denies chills, fatigue, malaise, fever, sweats, travel HEENT: Denies sinus pain, ear pain, sore throat, difficulty swallowing, neck pain RESPIRATORY: Denies dyspnea, cough, wheezing, hemoptysis, sputum. CARDIOVASCULAR: Denies chest pain, palpitations, orthopnea, edema GASTROINTESTINAL: + diarrhea Denies nausea, vomiting, abdominal pain, constipation, melena. : Denies dysuria, frequency, incontinence, hematuria, urinary retention, flank pain. MUSCULOSKELETAL: Denies weakness, joint pain, or bony pain SKIN: No rash, no erythema, no pruritus NEUROLOGIC: See HPI PSYCHIATRIC: No concerning psychosocial issues. 12 point review of systems is negative except for those stated above and HPI Patient History Medical History Chronic atrial fibrillation (03/28/17) Chronic systolic congestive heart failure (03/28/17) Essential hypertension (03/28/17) Headache Heart failure with preserved ejection fraction, NYHA class II Juvenile idiopathic scoliosis of thoracolumbar region (09/15/15) Paroxysmal atrial fibrillation (01/03/18) Pure hypercholesterolemia (09/15/15) Radiculopathy of cervical spine Surgical History Anesthesia History of hip replacement History of hip replacement History of knee replacement History of knee replacement Status post cholecystectomy Status post hysterectomy Torn rotator cuff (~2010) Family History Brother Age: 79 Pacemaker Hypertension High cholesterol Brother Age: 79 Hypertension High cholesterol Father Heart disease Mother High cholesterol Sister Age: 82 Hypertension High cholesterol Social History marital status: Smoking Status: Never smoker alcohol intake: current (ON OCCASION ) substance use type: does not use Smoking Status: Never smoker alcohol intake frequency: 0-2 drinks per day Substance Use Type: does not use Exam Initial Vital Signs Initial Vital Signs: Vital Signs Pulse Rate 80 06/13/21 09:04 Pulse Oximetry 96 06/13/21 09:04 GENERAL: Alert well-appearing 70-year-old and in no acute distress. HEENT: Head atraumatic,EOMI, pupils reactive, face symmetric, moist mucous membranes CARDIOVASCULAR: Regular rate and rhythm without murmurs, rubs or gallops. RESPIRATORY: Breath sounds equal bilaterally, no wheezes rales or rhonchi. ABDOMEN: Soft, nontender. Normoactive bowel sounds all 4 quadrants. No guarding or rebound. EXTREMITIES: Normal range of motion, no clubbing or edema. Neurovascularly intact NEUROLOGICAL: Alert and oriented x4.Normal gait and speech. Cranial nerves II through XII grossly intact. Good [id number]-ofsa, good [id number]-aqbf, strength equal bilaterally, no dysarthria or aphasia, sensation in tact to soft touch bilaterally, no visual changes, no facial droop SKIN: Warm, dry, no laceration, no petechiae, no rashes or lesions. Course Orders Ordered: Discontinued Medications Aspirin (Aspirin 81 Mg Chew Tab) 324 mg PO NOW ONE Stop: 06/13/21 09:40 Last Admin: 06/13/21 10:10 Dose: 324 mg Documented by: REJI Sodium Chloride (Normal Saline 0.9%) 1,000 mls @ 1,000 mls/hr IV BOLUS ONE Stop: 06/13/21 10:38 Last Infusion: 06/13/21 11:08 Dose: 0 mls/hr Documented by: Admin: 06/13/21 10:10 Dose: 1,000 mls/hr Documented by: REJI Vital Signs Vital signs: Vital Signs - 8 hr 06/13/21 11:23 Temperature 98 F Pulse Rate 69 Respiratory Rate 18 Blood Pressure 128/67 Pulse Oximetry 98 Medical Decision Making Lab Data Result diagrams: 06/13/21 09:15 06/13/21 09:15 Labs: Lab Results 06/13/21 06/13/21 Range/Units 09:15 09:15 WBC 12.3 H (4.5-11.0) X10^3/uL RBC 4.11 (4.0-5.2) X10^6/uL Hgb 13.8 (12.0-16.0) g/dL Hct 40.9 (36-46) % MCV 99.4 (80-100) fL MCH 33.6 (26-34) PG MCHC 33.8 (30-36) % RDW 14.0 (11.6-14.8) % Plt Count 303 (150-400) X10^3/uL Neut % (Auto) 76.9 H (50-75) % Lymph % (Auto) 14.9 L (25-40) % Morehouse % (Auto) 6.7 (3-14) % Eos % (Auto) 1.2 L (2-4) % Baso % (Auto) 0.3 (0-2) % Neut # (Auto) 9500 H (8408-7662) /uL Lymph # (Auto) 1800 (9762-1017) /uL Morehouse # (Auto) 800 (0-900) /uL Eos # (Auto) 200 (0-450) /uL Baso # (Auto) 0 (0-100) /uL Sodium 137 (137-145) mmol/L Potassium 4.2 (3.4-5.1) mmol/L Chloride 102 (98-107) mmol/L Carbon Dioxide 26 (22-32) mmol/L BUN 19 H (7-17) mg/dL Creatinine 0.84 (0.52-1.04) mg/dL Estimated GFR > 60.0 (>60) mL/min BUN/Creatinine Ratio 22.6 H (6-22) Glucose 107 (80-110) mg/dL Calcium 9.9 (8.4-10.2) mg/dL Total Bilirubin 0.6 (0.2-1.3) mg/dL AST 52 H (14-36) IU/L ALT 31 (<35) IU/L Alkaline Phosphatase 79 (38-126) U/L Total Creatine Kinase 146 H (30-135) U/L CK-MB (CK-2) 2.32 (<2.37) ng/mL CK-MB (CK-2) Rel Index 1.6 (1.5-5.0) % Troponin I < 0.012 (0.01-0.034) ng/mL Total Protein 7.7 (6.3-8.2) g/dL Albumin 4.6 (3.5-5.0) g/dL Globulin 3.1 (1.7-4.1) g/dL Albumin/Globulin Ratio 1.5 (1.0-2.8) Lipase 94 (23-300) U/L ECG Data Interpretation: Paced rhythm rate [address] changes MDM Narrative Medical decision making narrative: Patient blood pressure has been normal here. Blood work is overall reassuring. Pacemaker has been interrogated her no abnormality she has not had an episode of atrial fibrillation since May 20. Overall feeling significantly better. She has not had any diarrhea here in the emergency department. She has no focal deficits to suggest stroke. Blood work does not show significant dehydration. Discharge Plan Departure Patient Disposition: Home Clinical Impression: Diarrhea Instructions: Diarrhea Activity Restrictions/Additional Instructions: *You have been diagnosed with diarrhea *What to do: Blood pressure now is much better than it was previously. It may be related to diarrhea. Please increase fluid intake as tolerated recommend Gatorade or Gatorade like product. *Continue to take medications as directed *Follow up with your primary care provider in 2-3 days *Return to ER if you should have for increasing dizziness lightheadedness worsening diarrhea or vomiting or any new, worsening or concerning symptoms Prescriptions: No Action lisinopril-hydrochlorothiazide 20-25 mg tablet 1 tab PO DAILY Qty: 90 RF: 3 niacin 500 MG tablet 500 mg PO Qty: 0 RF: 0 acetaminophen [Tylenol Extra Strength] 500 MG tablet 500 mg PO Q6HP PRNQty: 0 RF: 0 flecainide 50 MG tablet 50 mg PO BID Qty: 30 RF: 0 metoprolol succinate [Toprol XL] 25 mg tablet extended release 24 hr 12.5 mg PO QDAY Qty: 30 RF: 1 atorvastatin 20 mg tablet See Rx Instructions .ROUTE .COMPLEX Qty: 90 RF: 2 Eliquis 5 mg tablet 5 mg PO BID Qty: 60 RF: 3 omega-3 fatty acids [Fish Oil Concentrate] 1,000 mg capsule 1,000 mg PO DAILY RF: 0 calcium carb and citrat-mag ox 200 mg calcium- 50 mg tablet 2 tab PO RF: 0 Referrals: Alonso Cervantes MD [Primary Care Provider] -
--- NOTE | 2021-06-13 09:41 | PC.NURSE ---
interoggating pacemaker [facility]berto device
[2021-06-13 09:44] LABS: Add Manual Diff / Slide Review NO; Basophils Absolute Auto 0 /uL (0-100); Basophils Percent Auto 0.3 % (0-2); Eosinophils Absolute Auto 200 /uL (0-450); Eosinophils Percent Auto 1.2 % (2-4); Hematocrit 40.9 % (36-46); Hemoglobin 13.8 g/dL (12.0-16.0); Lymphocytes Absolute Auto 1800 /uL (1100-4500); Lymphocytes Percent Auto 14.9 % (25-40); Mean Corpuscular HGB Conc 33.8 % (30-36); Mean Corpuscular Hemoglobin 33.6 PG (26-34); Mean Corpuscular Volume 99.4 fL (80-100); Monocytes Absolute Auto 800 /uL (0-900); Monocytes Percent Auto 6.7 % (3-14); Neutrophils Absolute Auto 9500 /uL (1500-7000); Neutrophils Percent Auto 76.9 % (50-75); Platelet Count 303 X10^3/uL (150-400); Red Blood Cell Count 4.11 X10^6/uL (4.0-5.2); White Blood Cell Count 12.3 X10^3/uL (4.5-11.0)
[2021-06-13 09:54] LABS: Alanine Aminotransferase 31 IU/L (<35); Albumin 4.6 g/dL (3.5-5.0); Albumin Globulin Ratio 1.5 (1.0-2.8); Alkaline Phosphatase 79 U/L (38-126); Aspartate Aminotransferase 52 IU/L (14-36); BUN Creatinine Ratio 22.6 (6-22); Bilirubin Total 0.6 mg/dL (0.2-1.3); Blood Urea Nitrogen 19 mg/dL (7-17); Calcium 9.9 mg/dL (8.4-10.2); Carbon Dioxide 26 mmol/L (22-32); Chloride 102 mmol/L (98-107); Creatine Kinase 146 U/L (30-135); Estimated Glomerular Filt Rate > 60.0 mL/min (>60); Globulin 3.1 g/dL (1.7-4.1); Glucose 107 mg/dL (80-110); HEMOLYSIS < 15 (0-50); Lipase 94 U/L (23-300); Potassium 4.2 mmol/L (3.4-5.1); Sodium 137 mmol/L (137-145); Total Protein 7.7 g/dL (6.3-8.2)
[2021-06-13 10:06] LABS: Troponin I < 0.012 ng/mL (0.01-0.034)
[2021-06-13 10:09] LABS: CKMB % Relative Index 1.6 % (1.5-5.0); Creatine Kinase MB 2.32 ng/mL (<2.37)
[2021-06-13] MEDS: SODIUM CHLORIDE 0.9% 1,000 ML 1000 ML IV (10:10)
[2021-06-13] MEDS: ASPIRIN 81 MG CHEW TAB 324 MG PO (10:10)
== END 2021-06-13 11:24 | disposition home or self-care (01) ==
PROVIDERS: Emergency Provider Emergency Medicine; PCP Family Medicine
DX: R19.7 Diarrhea, unspecified (principal); R42 Dizziness and giddiness; R07.9 Chest pain, unspecified
CPT/HCPCS: 36415; 80053; 82550; 82553; 83690; 84484; 85025; 93005; 96360; 99284

== ENCOUNTER → 2022-04-11 07:34 | Outpatient (CLI) | payer OTHER, SELFPAY ==
[2022-04-11 08:32] LABS: Add Manual Diff / Slide Review NO; Basophils Absolute Auto 0 /uL (0-100); Basophils Percent Auto 0.6 % (0-2); Eosinophils Absolute Auto 200 /uL (0-450); Eosinophils Percent Auto 3.3 % (2-4); Hematocrit 37.5 % (36-46); Hemoglobin 13.2 g/dL (12.0-16.0); Lymphocytes Absolute Auto 2300 /uL (1100-4500); Lymphocytes Percent Auto 36.3 % (25-40); Mean Corpuscular HGB Conc 35.2 % (30-36); Mean Corpuscular Hemoglobin 34.7 PG (26-34); Mean Corpuscular Volume 98.6 fL (80-100); Monocytes Absolute Auto 700 /uL (0-900); Monocytes Percent Auto 11.5 % (3-14); Neutrophils Absolute Auto 3100 /uL (1500-7000); Neutrophils Percent Auto 48.3 % (50-75); Platelet Count 284 X10^3/uL (150-400); Red Cell Distribution Width 13.9 % (11.6-14.8); White Blood Cell Count 6.3 X10^3/uL (4.5-11.0)
[2022-04-11 08:46] LABS: Alanine Aminotransferase 22 IU/L (<35); Albumin 4.4 g/dL (3.5-5.0); Albumin Globulin Ratio 1.7 (1.0-2.8); Alkaline Phosphatase 88 U/L (38-126); Aspartate Aminotransferase 38 IU/L (14-36); BUN Creatinine Ratio 24.3 (6-22); Bilirubin Total 0.5 mg/dL (0.2-1.3); Blood Urea Nitrogen 18 mg/dL (7-17); Calcium 9.6 mg/dL (8.4-10.2); Carbon Dioxide 27 mmol/L (22-32); Chloride 100 mmol/L (98-107); Cholesterol 173 mg/dL (140-199); Estimated Glomerular Filt Rate > 60 mL/min (>60); Globulin 2.6 g/dL (1.7-4.1); Glucose 91 mg/dL (80-110); HDL Cholesterol 71 mg/dL (40-60); HEMOLYSIS < 15 (0-50); LDL Cholesterol Calculated 60 mg/dL (<100); Potassium 4.1 mmol/L (3.4-5.1); Sodium 137 mmol/L (137-145); Triglycerides 209 mg/dL (35-150)
[2022-04-11 09:12] LABS: TSH w/ Reflex to FT4 2.02 uIU/mL (0.47-4.68)
== END ==
PROVIDERS: PCP Family Medicine; Referring Provider Family Medicine; Visit Provider Family Medicine
DX: I48.0 Paroxysmal atrial fibrillation (principal); I50.30 Unspecified diastolic (congestive) heart failure; I45.10 Unspecified right bundle-branch block
CPT/HCPCS: 36415; 80053; 80061; 84443; 85025

== ENCOUNTER → 2022-04-12 07:04 | Outpatient (CLI) | payer OTHER, SELFPAY ==
--- NOTE | 2022-04-12 07:05 | DI.RAD.S_ITS ---
PROCEDURE: XR LUMBAR SPINE MIN 4V INDICATIONS: hip and hip TECHNIQUE: 5 views of the lumbar spine were acquired, including bilateral oblique views. COMPARISON: [facility], , L-SPINE 2-3 VIEWS, 10/20/2014, 15:23. FINDINGS: Bones: 5 nonrib-bearing vertebrae are present. There is trace retrolisthesis of L2 on L3, L3 on L4, L5 on S1 and trace anterolisthesis of L4 on L5. Multilevel severe disc space narrowing is present most prominent L5-S1. Severe foraminal narrowing is present at L5-S1, moderate L1 and L2. Overall areas degenerative change are progressive since 2015 most notable at L5-S1. Bilateral hip arthroplasties are present in partial lysed view. Hardware appears intact without evidence of hardware fracture or periprosthetic loosening. No vertebral body compression fractures. No suspicious bony lesions. Soft tissues: Overlying bowel gas pattern is normal. No suspicious soft tissue calcifications. Oblique images: No pars defects. IMPRESSION: Multilevel degenerative changes most severe at L5-S1. Dictated by: Lis Vann M.D. on 04/12/2022 at 13:45 Approved by: Lis Vann M.D. on 04/12/2022 at 13:52
--- NOTE | 2022-04-12 07:05 | DI.RAD.S_ITS ---
PROCEDURE: XR HIP W PEL IF DONE JESSICA MIN 4V INDICATIONS: hip and hip TECHNIQUE: AP pelvis with lateral view(s) of the bilateral hip(s). COMPARISON: None. FINDINGS: Bones: No fractures or dislocations. Pelvic ring appears intact. No suspicious bony lesions. Bilateral hip arthroplasties are present. Hardware is intact without hardware fracture or periprosthetic lucency to suggest loosening. Degenerative changes are present within the lower lumbar spine. Soft tissues: The visualized bowel gas pattern is normal. No suspicious soft tissue calcifications. IMPRESSION: Bilateral hip arthroplasties as above. Dictated by: Lis Vann M.D. on 04/12/2022 at 13:52 Approved by: Lis Vann M.D. on 04/12/2022 at 13:53
== END ==
PROVIDERS: PCP Family Medicine; Referring Provider Family Medicine; Visit Provider Family Medicine
DX: M47.817 Spondylosis without myelopathy or radiculopathy, lumbosacral region (principal); M25.559 Pain in unspecified hip; M54.9 Dorsalgia, unspecified; G89.29 Other chronic pain; Z96.643 Presence of artificial hip joint, bilateral
CPT/HCPCS: 72110; 73522

== ENCOUNTER → 2022-10-20 16:21 | Outpatient (CLI) | payer OTHER, SELFPAY ==
--- NOTE | 2022-10-20 16:23 | DI.MG.S_ITS ---
BILATERAL DIGITAL SCREENING MAMMOGRAM 3D/2D WITH CAD: 10/20/2022 CLINICAL: Routine screening. Family history of breast cancer. Comparison is made to exams dated: 11/21/2018 mammogram, 11/14/2016 mammogram, and 10/05/2015 mammogram - [facility]. Both breasts are heterogeneously dense, which may obscure small masses (category c / 51-75% glandular tissue). Current study was also evaluated with a Computer Aided Detection (CAD) system. There is a mole marker on the left breast. No significant masses, calcifications, or other findings are seen in either breast. There has been no significant interval change. IMPRESSION: NEGATIVE There is no mammographic evidence of malignancy. A 1 year screening mammogram is recommended. Based on the Tyrer Cuzick model (a risk assessment model) the patient's lifetime risk is 7.9% and her 10 year risk is 5.9%. According to the ACR, ACS, and NCCN guidelines, an annual breast MRI exam along with mammogram is recommended if the patient's lifetime risk is 20% or greater. This exam was interpreted at Station ID: [id number]. NOTE: For mammograms, a report in lay terms will be sent to the patient. Approximately 15% of breast malignancies will not be visualized mammographically. In the management of a palpable breast mass, a negative mammogram must not discourage biopsy of a clinically suspicious lesion. Electronically Signed By: Alonso Abreu M.D., jr/macario:10/21/2022 14:00:22 letter sent: Normal Exam ACR BI-RADS Category 1: Negative 3341F
== END ==
PROVIDERS: PCP Family Medicine; Referring Provider Family Medicine; Visit Provider Family Medicine
DX: Z12.31 Encounter for screening mammogram for malignant neoplasm of breast (principal); Z80.3 Family history of malignant neoplasm of breast
CPT/HCPCS: 77063; 77067

== ENCOUNTER 2023-05-11 08:23 | Day surgery (SDC) | payer OTHER, SELFPAY ==
[2023-05-11 08:46] VITALS: BP 176/88; PULSE 72; RESP 16; TEMP 36.3; O2SAT 98; BMI 32.1
[2023-05-11] MEDS: LACTATED RINGERS 1,000 ML 84 ML IV (09:01)
--- NOTE | 2023-05-11 09:24 | P.HP_ITS ---
History of Present Illness History of Present Illness Date Patient Seen: 05/11/23 Time Patient Seen: 09:24 Chief complaint: [facility] [place] Narrative: Carrie is a 72-year-old woman who is here for colonoscopy. Her last 1 was 10 years ago. She has never had polyps removed. She has no first-degree relatives with colon cancer. [facility] Medical History (Updated 05/11/23 @ 09:24 by Janes Gallego MD) Chronic atrial fibrillation (03/28/17) Chronic systolic congestive heart failure (03/28/17) Essential hypertension (03/28/17) Headache Heart failure with preserved ejection fraction, NYHA class II Juvenile idiopathic scoliosis of thoracolumbar region (09/15/15) Paroxysmal atrial fibrillation (01/03/18) Pure hypercholesterolemia (09/15/15) Radiculopathy of cervical spine Soft tissue mass Surgical History Anesthesia History of hip replacement History of hip replacement History of knee replacement History of knee replacement Status post cholecystectomy Status post hysterectomy Torn rotator cuff (~2010) Family History Brother Age: 81 Pacemaker Hypertension High cholesterol Brother Age: 81 Hypertension High cholesterol Father Heart disease Mother High cholesterol Sister Age: 84 Hypertension High cholesterol Social History marital status: household members: spouse Smoking Status: Never smoker alcohol intake: current substance use type: does not use Meds Home Medications and Allergies Home Medications Medication Instructions Recorded Confirmed Type niacin 500 mg tablet 500 mg PO 1XD ##0 02/28/17 05/11/23 History acetaminophen 500 mg tablet 500 mg PO Q6HP PRN Cardiac 05/25/17 05/11/23 History (Tylenol Extra Strength) Arrhythmia ##0 calcium 2 tab PO 1XD 05/16/18 05/11/23 History carbonate,citrate-magnesium oxide 200 mg calcium-50 mg tablet omega-3 fatty acids 1,000 mg 1,000 mg PO DAILY 05/16/18 05/11/23 History capsule (Fish Oil Concentrate) flecainide 50 mg tablet 100 mg PO BID 04/07/22 05/11/23 History metoprolol succinate 25 mg 12.5 mg PO BID 04/07/22 05/11/23 History tablet,extended release 24 hr (Toprol XL) lisinopril 20 See Rx Instructions .Route 07/11/22 05/11/23 Rx mg-hydrochlorothiazide 25 mg tablet .COMPLEX #90 tabs atorvastatin 20 mg tablet See Rx Instructions .Route 01/31/23 05/11/23 Rx .COMPLEX #90 tabs apixaban 5 mg tablet (Eliquis) See Rx Instructions .Route 03/17/23 05/11/23 Rx .COMPLEX #60 tabs sodium sul 1.479 gram-potas ch See Rx Instructions PO PER PKG DIR 03/20/23 Rx 0.188 gram-magnes sul 0.225 gram #24 tabs tablet (Sutab) Disabled Parking Permit #1 ea 04/20/23 Rx Allergies Allergy/AdvReac Type Severity Reaction Status Date / Time No Known Drug Allergies Allergy Verified 09/30/21 13:22 Exam Vital Signs (past 8 hours): - 05/11/23 08:46 Temperature 97.3 F L Pulse Rate 72 Respiratory Rate 16 Blood Pressure 176/88 H Pulse Oximetry 98 Oxygen Delivery Method Room Air Oxygen Delivery Method Room Air Const General: healthy appearing Assessment & Plan Assessment and plan (1) Colon cancer screening: Status: Acute Plan Reviewed the risks and benefits of colonoscopy for colon cancer screening and she would like to proceed.
--- NOTE | 2023-05-11 10:23 | PM.OP.COLON ---
Operative Date/Time/Diagnoses Date of procedure: 05/11/23 Time of procedure: 10:24 Pre-op diagnosis: Colon cancer screening Post-op diagnosis: same Procedure & Clinicians Study performed: Colonoscopy Same procedure as scheduled: Yes Surgeon: Janes Gallego Procedure Notes Procedure in detail: Surgeon: Janes Gallego MD Anesthesia: Luciano Almodovar CRNA Procedure: The patient was brought to the endoscopy suite, placed in left lateral decubitus position. The patient was connected to monitoring devices. A time-out was performed. Sedation was administered. Once the patient was adequately sedated, a digital rectal exam was performed and was normal. The scope was then inserted and advanced to the cecum where the appendiceal orifice was identified and photographed. The scope was then slowly withdrawn over greater than 6 minutes. The mucosa was thoroughly inspected. No abnormalities were found. There were some scattered diverticula in the sigmoid colon. The scope was retroflexed in the rectum. No abnormalities were seen there. The scope was straightened and removed. The patient was awakened and brought to recovery. Scope withdrawal time: 7 minutes Sedation time: 13 minutes EBL: 0 Findings: Scattered sigmoid diverticulosis Post-procedure Disposition: PACU
[2023-05-11 10:27] VITALS: BP 110/80; PULSE 70; RESP 16; TEMP 36.5; O2SAT 100
[2023-05-11 10:32] VITALS: BP 114/74; PULSE 70; RESP 17; O2SAT 100
[2023-05-11 10:37] VITALS: BP 135/76; PULSE 75; RESP 20; TEMP 37.1; O2SAT 99
== END 2023-05-11 10:51 | disposition home or self-care (01) ==
PROVIDERS: PCP Family Medicine; Referring Provider Surgery; Visit Provider Surgery
PROC: 0DJD8ZZ Inspection of Lower Intestinal Tract, Via Natural or Artificial Opening Endoscopic (ICD-10-PCS; CPT 45378; principal; 2023-05-11 09:30)
DX: Z12.11 Encounter for screening for malignant neoplasm of colon (principal); K57.30 Diverticulosis of large intestine without perforation or abscess without bleeding
CPT/HCPCS: G0121; J2704

== ENCOUNTER → 2023-07-14 07:34 | Outpatient (CLI) | payer OTHER, SELFPAY ==
[2023-07-14 08:51] LABS: Add Manual Diff / Slide Review NO; Basophils Absolute Auto 0 /uL (0-100); Basophils Percent Auto 0.4 % (0-2); Eosinophils Absolute Auto 200 /uL (0-450); Eosinophils Percent Auto 2.7 % (2-4); Hematocrit 36.1 % (36-46); Hemoglobin 12.5 g/dL (12.0-16.0); Lymphocytes Absolute Auto 2400 /uL (1100-4500); Lymphocytes Percent Auto 34.9 % (25-40); Mean Corpuscular HGB Conc 34.7 % (30-36); Mean Corpuscular Hemoglobin 34.6 PG (26-34); Mean Corpuscular Volume 99.6 fL (80-100); Monocytes Absolute Auto 800 /uL (0-900); Monocytes Percent Auto 11.5 % (3-14); Neutrophils Absolute Auto 3500 /uL (1500-7000); Neutrophils Percent Auto 50.5 % (50-75); Platelet Count 272 X10^3/uL (150-400); Red Blood Cell Count 3.62 X10^6/uL (4.0-5.2); Red Cell Distribution Width 14.4 % (11.6-14.8)
[2023-07-14 09:17] LABS: Alanine Aminotransferase 34 IU/L (<35); Albumin 4.4 g/dL (3.5-5.0); Albumin Globulin Ratio 1.6 (1.0-2.8); Alkaline Phosphatase 81 U/L (38-126); Aspartate Aminotransferase 46 IU/L (14-36); BUN Creatinine Ratio 20.5 (6-22); Bilirubin Total 0.6 mg/dL (0.2-1.3); Blood Urea Nitrogen 15 mg/dL (7-17); Calcium 9.9 mg/dL (8.4-10.2); Carbon Dioxide 27 mmol/L (22-32); Chloride 100 mmol/L (98-107); Cholesterol 169 mg/dL (140-199); Estimated Glomerular Filt Rate > 60 mL/min (>60); Globulin 2.7 g/dL (1.7-4.1); Glucose 95 mg/dL (80-110); HDL Cholesterol 76 mg/dL (40-60); HEMOLYSIS < 15 (0-50); LDL Cholesterol Calculated 62 mg/dL (<100); Potassium 3.9 mmol/L (3.4-5.1); Sodium 134 mmol/L (137-145); Total Protein 7.1 g/dL (6.3-8.2); Triglycerides 157 mg/dL (35-150)
[2023-07-14 09:48] LABS: TSH w/ Reflex to FT4 2.45 uIU/mL (0.47-4.68)
== END ==
PROVIDERS: PCP Family Medicine; Referring Provider Family Medicine; Visit Provider Family Medicine
DX: I48.0 Paroxysmal atrial fibrillation (principal); I50.30 Unspecified diastolic (congestive) heart failure; I50.22 Chronic systolic (congestive) heart failure; I49.5 Sick sinus syndrome
CPT/HCPCS: 36415; 80053; 80061; 84443; 85025

== ENCOUNTER → 2023-08-30 13:46 | Outpatient (CLI) | payer OTHER, SELFPAY ==
--- NOTE | 2023-08-30 13:47 | DI.RAD.S_ITS ---
PROCEDURE: XR FINGER LT MIN 2V INDICATIONS: Left 4th finger injury TECHNIQUE: AP hand, 2 views of the 4th finger(s) acquired. COMPARISON: None. FINDINGS: Bones: No fractures or dislocations. 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 There is a bone fragment on the dorsal side of the head of the middle phalanx of the ring finger possibly an avulsion fracture. Degenerative changes of the interphalangeal joints. No suspicious bony lesions. Soft tissues: No suspicious soft tissue calcifications. 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 Dictated by: Aman Wyatt M.D. on 08/30/2023 at 15:54 Approved by: Aman Wyatt M.D. on 08/30/2023 at 15:59
== END ==
PROVIDERS: PCP Family Medicine; Referring Provider Nurse Practitioner Family; Visit Provider Nurse Practitioner Family
DX: S69.90XA Unspecified injury of unspecified wrist, hand and finger(s), initial encounter (principal); M20.022 Boutonniere deformity of left finger(s)
CPT/HCPCS: 73140

== ENCOUNTER → 2023-09-18 07:37 | Outpatient (CLI) | payer OTHER, SELFPAY ==
--- NOTE | 2023-09-18 09:10 | DI.RAD.S_ITS ---
PROCEDURE: XR LUMBAR SPINE MIN 4V INDICATIONS: LOW BACK PAIN TECHNIQUE: 5 views of the lumbar spine were acquired, including bilateral oblique views. COMPARISON: [facility], , L-SPINE 2-3 VIEWS, 10/20/2014, 15:23., lumbar spine radiographs 04/12/2022 FINDINGS: Bones: 5 nonrib-bearing vertebrae are present. Levoconvex lumbar scoliosis centered at L3. Trace anterolisthesis of L4 on L5 and trace retrolisthesis of L5 on S1. Multilevel severe disc space narrowing, subchondral sclerosis and osteophytosis, worse at L5-S1, but overall progressed since prior exam in 2021. Severe foraminal narrowing at L5-S1, moderate L1 and L2. Severe bilateral facet arthropathy at L4-L5 and L5-S1. No acute fracture. Status post bilateral hip arthroplasty, which is partially evaluated. No evidence of hardware fracture or periprosthetic loosening. Soft tissues: Overlying bowel gas pattern is normal. No suspicious soft tissue calcifications. Oblique images: No pars defects. IMPRESSION: Multilevel degenerative changes most severe at L5-S1, progressed since prior radiograph 04/12/2022. Dictated by: Bambi [place] M.D. on 09/18/2023 at 13:36 Approved by: Bambi [place] M.D. on 09/18/2023 at 13:41
== END ==
PROVIDERS: PCP Family Medicine; Referring Provider Physical Medicine & Rehabilitation; Visit Provider Physical Medicine & Rehabilitation
DX: M47.817 Spondylosis without myelopathy or radiculopathy, lumbosacral region (principal); M54.9 Dorsalgia, unspecified; G89.29 Other chronic pain; Z96.643 Presence of artificial hip joint, bilateral
CPT/HCPCS: 72110

== ENCOUNTER → 2023-10-21 10:24 | Outpatient (CLI) | payer OTHER, SELFPAY ==
--- NOTE | 2023-10-21 | DI.MG.S_ITS ---
BILATERAL DIGITAL SCREENING MAMMOGRAM 3D/2D WITH CAD: 10/21/2023 CLINICAL: Routine screening. Family history of breast cancer. Comparison is made to exams dated: 10/20/2022 mammogram, 11/21/2018 mammogram, and 11/14/2016 mammogram - [facility]. There are scattered areas of fibroglandular density in both breasts (category b / 25%-50% glandular tissue). Current study was also evaluated with a Computer Aided Detection (CAD) system. No significant masses, calcifications, or other findings are seen in either breast. There has been no significant interval change. IMPRESSION: NEGATIVE There is no mammographic evidence of malignancy. A 1 year screening mammogram is recommended. Based on the Tyrer Cuzick model (a risk assessment model) the patient's lifetime risk is 4.9% and her 10 year risk is 4.0%. According to the ACR, ACS, and NCCN guidelines, an annual breast MRI exam along with mammogram is recommended if the patient's lifetime risk is 20% or greater. This exam was interpreted at Station ID: [id number]. NOTE: For mammograms, a report in lay terms will be sent to the patient. Approximately 15% of breast malignancies will not be visualized mammographically. In the management of a palpable breast mass, a negative mammogram must not discourage biopsy of a clinically suspicious lesion. Electronically Signed By: George granados/macario:10/23/2023 07:30:04 letter sent: Normal Exam ACR BI-RADS Category 1: Negative 3341F
== END ==
LOC: MAMMO 10:24
PROVIDERS: PCP Family Medicine; Referring Provider Family Medicine; Visit Provider Family Medicine
DX: Z12.31 Encounter for screening mammogram for malignant neoplasm of breast (principal); Z80.3 Family history of malignant neoplasm of breast; R92.323 Mammographic fibroglandular density, bilateral breasts
CPT/HCPCS: 77063; 77067

== ENCOUNTER → 2023-10-31 11:37 | Outpatient (CLI) | payer OTHER, SELFPAY ==
--- NOTE | 2023-10-31 11:40 | DI.RAD.S_ITS ---
PROCEDURE: XR THORACIC SPINE 3V INDICATIONS: RIB PAIN TECHNIQUE: 3 views of the thoracic spine were acquired. COMPARISON: None. FINDINGS: Bones: No fractures or dislocations. No suspicious bony lesions. 12 pairs of ribs are noted, and appear intact where visualized. Multilevel degenerative disc space narrowing as well as anterior osteophytes. Soft tissues: No paravertebral stripe thickening. IMPRESSION: Multilevel degenerative changes. No visualized acute fracture or dislocation. However, if clinical concern and/or pain persist, short interval imaging followup in 7-10 days is recommended, as occult injury cannot be definitively excluded. If concern persists for rib fracture, rib series is recommended. Dictated by: Lis Vann M.D. on 10/31/2023 at 16:18 Approved by: Lis Vann M.D. on 10/31/2023 at 16:20
--- NOTE | 2023-10-31 11:40 | DI.RAD.S_ITS ---
PROCEDURE: XR CERVICAL SPINE 4V OR 5V INDICATIONS: NECK PAIN TECHNIQUE: 5 views of the cervical spine acquired. COMPARISON: [facility], MR, MR CERVICAL SPINE WITHOUT CONTRAST, 10/25/2023, 8:34. FINDINGS: Bones: No fractures or dislocations to the T1 level. Oblique images demonstrate no bony foraminal stenoses. Multilevel degenerative changes are present with most severe disc space narrowing at C3-4, C5-6. Small anterior osteophytes are present as well as multilevel uncovertebral hypertrophy. Multilevel moderate to severe foraminal narrowing is present unchanged compared to MRI most significant at C4-5. Soft tissues: No prevertebral soft tissue swelling. IMPRESSION: Multilevel degenerative changes stable compared to prior exam. Dictated by: Lis Vann M.D. on 10/31/2023 at 16:17 Approved by: Lis Vann M.D. on 10/31/2023 at 16:18
== END ==
PROVIDERS: PCP Family Medicine; Referring Provider Physical Medicine & Rehabilitation; Visit Provider Physical Medicine & Rehabilitation
DX: M47.812 Spondylosis without myelopathy or radiculopathy, cervical region (principal); M47.814 Spondylosis without myelopathy or radiculopathy, thoracic region; M54.2 Cervicalgia; R07.81 Pleurodynia
CPT/HCPCS: 72050; 72072

== ENCOUNTER → 2024-01-04 12:22 | Outpatient (CLI) | payer OTHER, SELFPAY ==
[2024-01-04 12:59] LABS: Add Manual Diff / Slide Review NO; Basophils Absolute Auto 0 /uL (0-100); Basophils Percent Auto 0.5 % (0-2); Eosinophils Absolute Auto 300 /uL (0-450); Eosinophils Percent Auto 3.4 % (2-4); Hematocrit 36.5 % (36-46); Hemoglobin 12.5 g/dL (12.0-16.0); Lymphocytes Absolute Auto 2300 /uL (1100-4500); Lymphocytes Percent Auto 30.3 % (25-40); Mean Corpuscular HGB Conc 34.3 % (30-36); Mean Corpuscular Hemoglobin 34.1 PG (26-34); Mean Corpuscular Volume 99.5 fL (80-100); Monocytes Absolute Auto 900 /uL (0-900); Neutrophils Absolute Auto 4100 /uL (1500-7000); Neutrophils Percent Auto 53.8 % (50-75); Platelet Count 315 X10^3/uL (150-400); Red Blood Cell Count 3.66 X10^6/uL (4.0-5.2); Red Cell Distribution Width 13.8 % (11.6-14.8); White Blood Cell Count 7.7 X10^3/uL (4.5-11.0)
[2024-01-04 13:28] LABS: Alanine Aminotransferase 23 IU/L (<35); Albumin 4.5 g/dL (3.5-5.0); Albumin Globulin Ratio 1.6 (1.0-2.8); Alkaline Phosphatase 93 U/L (38-126); Aspartate Aminotransferase 43 IU/L (14-36); BUN Creatinine Ratio 23.9 (6-22); Bilirubin Total 0.6 mg/dL (0.2-1.3); Blood Urea Nitrogen 17 mg/dL (7-17); Calcium 9.9 mg/dL (8.4-10.2); Carbon Dioxide 26 mmol/L (22-32); Chloride 99 mmol/L (98-107); Estimated Glomerular Filt Rate > 60 mL/min (>60); Globulin 2.8 g/dL (1.7-4.1); Glucose 94 mg/dL (80-110); HEMOLYSIS < 15 (0-50); Potassium 4.5 mmol/L (3.4-5.1); Sodium 132 mmol/L (137-145); Total Protein 7.3 g/dL (6.3-8.2)
== END ==
PROVIDERS: PCP Family Medicine; Referring Provider Family Medicine; Visit Provider Family Medicine
DX: G95.9 Disease of spinal cord, unspecified (principal); I11.0 Hypertensive heart disease with heart failure; I50.30 Unspecified diastolic (congestive) heart failure; E78.00 Pure hypercholesterolemia, unspecified
CPT/HCPCS: 80053; 85025

== ENCOUNTER → 2024-01-09 11:13 | Outpatient (CLI) | payer OTHER, SELFPAY ==
--- NOTE | 2024-01-09 11:30 | DI.RAD.S_ITS ---
PROCEDURE: XR DEXA AXIAL SKELETON INDICATIONS: osteopenia COMPARISON: [facility], CR, XR LUMBAR SPINE MIN 4V, 09/18/2023, 9:19. FINDINGS: Lumbar Spine: Bone mineral density 1.075 g/cm2, T score 0.3. Left Forearm: Bone mineral density 0.567 g/cm2, T score -2.1. Fracture Risk Calculation (when applicable): None given due to prior bilateral total hip arthroplasty. (T score greater or equal to -1.0 to: NORMAL) (T score from -1.1 to -2.4: OSTEOPENIA) (T score less than or equal to -2.5: OSTEOPOROSIS) IMPRESSION: Osteopenia. Follow-up guidelines as follows: Osteoporosis: Consider a repeat DEXA and Vertebral Fracture Assessment (VFA) exam in 2 years or sooner if medically necessary, to reassess this patient's status. Osteopenia: Consider a repeat DEXA in 2-3 years to reassess this patient's status, or if there is a new clinical indication. Normal: Consider a repeat DEXA in 5 years or sooner, or if there is a new clinical indication. Dictated by: Rodriguez Paul M.D. on 01/09/2024 at 12:49 Approved by: Rodriguez Paul M.D. on 01/09/2024 at 12:50
== END ==
PROVIDERS: PCP Family Medicine; Referring Provider Family Medicine; Visit Provider Family Medicine
DX: M85.832 Other specified disorders of bone density and structure, left forearm (principal)
CPT/HCPCS: 77080; 77081

== ENCOUNTER → 2024-02-06 15:02 | Outpatient (ROUT) | payer OTHER, SELFPAY ==
[2024-02-06 15:22] LABS: Alanine Aminotransferase 22 IU/L (<35); Albumin 4.3 g/dL (3.5-5.0); Albumin Globulin Ratio 1.4 (1.0-2.8); Alkaline Phosphatase 118 U/L (38-126); Aspartate Aminotransferase 29 IU/L (14-36); Bilirubin Total 0.6 mg/dL (0.2-1.3); Bilirubin Unconjugated 0.1 mg/dL (0.0-1.1); HEMOLYSIS < 15 (0-50); Total Protein 7.3 g/dL (6.3-8.2)
== END ==
PROVIDERS: PCP Family Medicine; Visit Provider Family Medicine
DX: R74.8 Abnormal levels of other serum enzymes (principal)
CPT/HCPCS: 80076

== ENCOUNTER → 2024-03-02 11:13 | Outpatient (CLI) | payer OTHER, SELFPAY | PROVIDERS: PCP Family Medicine; Visit Provider Nurse Practitioner Family | DX: R30.0 Dysuria (principal) | CPT/HCPCS: 87077; 87086; 87186 ==

== ENCOUNTER → 2024-03-11 06:58 | Outpatient (CLI) | payer OTHER, SELFPAY ==
[2024-03-11 08:00] LABS: Add Manual Diff / Slide Review NO; Basophils Absolute Auto 0 /uL (0-100); Basophils Percent Auto 0.3 % (0-2); Eosinophils Absolute Auto 200 /uL (0-450); Eosinophils Percent Auto 2.8 % (2-4); Hematocrit 38.3 % (36-46); Lymphocytes Absolute Auto 2000 /uL (1100-4500); Lymphocytes Percent Auto 31.8 % (25-40); Monocytes Absolute Auto 800 /uL (0-900); Monocytes Percent Auto 11.9 % (3-14); Neutrophils Absolute Auto 3400 /uL (1500-7000); Neutrophils Percent Auto 53.2 % (50-75); Platelet Count 318 X10^3/uL (150-400); Red Blood Cell Count 3.83 X10^6/uL (4.0-5.2); Red Cell Distribution Width 14.7 % (11.6-14.8); White Blood Cell Count 6.4 X10^3/uL (4.5-11.0)
[2024-03-11 08:22] LABS: BUN Creatinine Ratio 15.6 (6-22); Blood Urea Nitrogen 12 mg/dL (7-17); Calcium 9.4 mg/dL (8.4-10.2); Carbon Dioxide 29 mmol/L (22-32); Chloride 99 mmol/L (98-107); Estimated Glomerular Filt Rate > 60 mL/min (>60); Glucose 91 mg/dL (80-110); HEMOLYSIS < 15 (0-50); Potassium 4.9 mmol/L (3.4-5.1); Sodium 134 mmol/L (137-145)
== END ==
PROVIDERS: PCP Family Medicine; Referring Provider Internal Medicine Cardiovascular Disease; Visit Provider Internal Medicine Cardiovascular Disease
DX: I48.0 Paroxysmal atrial fibrillation (principal)
CPT/HCPCS: 36415; 80048; 85025

== ENCOUNTER → 2024-04-04 08:04 | Outpatient (CLI) | payer OTHER, SELFPAY ==
--- NOTE | 2024-04-04 08:07 | DI.RAD.S_ITS ---
PROCEDURE: XR CERVICAL SPINE 2V OR 3V INDICATIONS: Spinal stenosis, cervical region TECHNIQUE: 3 view(s) of the cervical spine were acquired. COMPARISON: [facility], CR, XR CERVICAL SPINE 4V OR 5V, 10/31/2023, 11:46. FINDINGS: Bones: Status post posterior spinal fusion from C3 to C6. No suspicious bony lesions. The bones are diffusely osteopenic. Multilevel disc height loss and facet arthropathy. Soft tissues: No prevertebral soft tissue swelling. Partially visualized left cardiac device. IMPRESSION: Patient is status post spine posterior spinal fusion from C3-C6. Dictated by: Blair Fernandes M.D. on 04/04/2024 at 16:32 Approved by: Blair Fernandes M.D. on 04/04/2024 at 16:41
== END ==
PROVIDERS: PCP Family Medicine; Referring Provider Neurological Surgery; Visit Provider Neurological Surgery
DX: M47.812 Spondylosis without myelopathy or radiculopathy, cervical region (principal); M48.02 Spinal stenosis, cervical region; Z98.1 Arthrodesis status
CPT/HCPCS: 72040

== ENCOUNTER → 2024-04-20 09:45 | Outpatient (CLI) | payer OTHER, SELFPAY ==
[2024-04-20 10:25] LABS: Add Manual Diff / Slide Review NO; Basophils Absolute Auto 0 /uL (0-100); Basophils Percent Auto 0.5 % (0-2); Eosinophils Absolute Auto 100 /uL (0-450); Eosinophils Percent Auto 2.1 % (2-4); Hematocrit 35.4 % (36-46); Hemoglobin 12.1 g/dL (12.0-16.0); Lymphocytes Absolute Auto 1500 /uL (1100-4500); Lymphocytes Percent Auto 26.8 % (25-40); Mean Corpuscular HGB Conc 34.2 % (30-36); Mean Corpuscular Volume 99.4 fL (80-100); Monocytes Absolute Auto 700 /uL (0-900); Neutrophils Absolute Auto 3100 /uL (1500-7000); Neutrophils Percent Auto 57.6 % (50-75); Platelet Count 277 X10^3/uL (150-400); Red Blood Cell Count 3.56 X10^6/uL (4.0-5.2); Red Cell Distribution Width 14.9 % (11.6-14.8); White Blood Cell Count 5.4 X10^3/uL (4.5-11.0)
[2024-04-20 10:45] LABS: BUN Creatinine Ratio 20.3 (6-22); Blood Urea Nitrogen 15 mg/dL (7-17); Calcium 9.2 mg/dL (8.4-10.2); Carbon Dioxide 26 mmol/L (22-32); Chloride 102 mmol/L (98-107); Estimated Glomerular Filt Rate > 60 mL/min (>60); Glucose 89 mg/dL (80-110); HEMOLYSIS < 15 (0-50); Potassium 4.6 mmol/L (3.4-5.1); Sodium 135 mmol/L (137-145)
[2024-04-20 10:45] LABS: Alanine Aminotransferase 20 IU/L (<35); Albumin Globulin Ratio 1.7 (1.0-2.8); Alkaline Phosphatase 99 U/L (38-126); Aspartate Aminotransferase 34 IU/L (14-36); Bilirubin Total 0.6 mg/dL (0.2-1.3); Bilirubin Unconjugated 0.2 mg/dL (0.0-1.1); Globulin 2.3 g/dL (1.7-4.1); HEMOLYSIS < 15 (0-50); Total Protein 6.3 g/dL (6.3-8.2)
== END ==
PROVIDERS: Physician Assistant; PCP Family Medicine; Referring Provider Internal Medicine Cardiovascular Disease; Visit Provider Internal Medicine Cardiovascular Disease
DX: I48.0 Paroxysmal atrial fibrillation (principal); R74.8 Abnormal levels of other serum enzymes
CPT/HCPCS: 36415; 80048; 80076; 85025

== ENCOUNTER 2024-06-16 17:37 | Emergency (ER) | payer OTHER, SELFPAY ==
[2024-06-16 17:40] VITALS: BP 168/94; PULSE 79; RESP 18; TEMP 36.7; O2SAT 94; BMI 34.6
[2024-06-16 17:45] VITALS: PULSE 91; RESP 16; O2SAT 95
--- NOTE | 2024-06-16 17:45 | DI.CT.S_ITS ---
PROCEDURE: CT CERVICAL SPINE WO CON INDICATIONS: fall on thinner TECHNIQUE: Noncontrast 3 mm thick sections acquired from the skull base to the T4 level. Sagittal and coronal reformats were then constructed. For radiation dose reduction, the following was used: automated exposure control, adjustment of mA and/or kV according to patient size. COMPARISON: [facility], CT, CT CERVICAL SPINE WO CON, 02/27/2021, 12:00. FINDINGS: Image quality: Excellent. Bones: No fractures or dislocations. Visualized superior ribs are intact. Posterolateral fusion C3 through C6 with decompressive laminectomies at C4, C5 and C6. Posterior ana and screw instrumentation in good position. No evidence of hardware failure or loosening. Diffuse disc space narrowing present. Craniovertebral relationships normal Soft tissues: Prevertebral soft tissues are normal in thickness. No paravertebral hematomas. No apical pneumothoraces. IMPRESSION: No evidence of fracture or traumatic malalignment. Instrumented midcervical spine posterolateral fusion with posterior decompression . No evidence of hardware failure or loosening. Approved by: Clayton Comer M.D. on 06/16/2024 at 17:40
--- NOTE | 2024-06-16 17:47 | DI.CT.S_ITS ---
PROCEDURE: CT FACIAL BONES WO CON INDICATIONS: fall on thinners TECHNIQUE: Noncontrast 2.5 mm thick axial images acquired from the mandible through the frontal sinuses, with coronal and sagittal reformatting. For radiation dose reduction, the following was used: automated exposure control, adjustment of mA and/or kV according to patient size. COMPARISON: [facility], CT, CT FACIAL BONES WO CON, 02/27/2021, 12:00. FINDINGS: Image quality: Excellent. Bones and teeth: Orbital mario are intact. Sinus mario show no fracture or deformity. Nasal bones and septum are intact. Visualized portions of the mandible demonstrate no fractures or subluxation. Zygomatic arches are intact. Pterygoid plates are intact. Visualized portions of the skull base and auditory canals are intact. Sinuses: Paranasal sinuses are aerated, without fluid levels, mucosal thickening, or mucoceles. Mastoid air cells are aerated. Soft tissues: No edema, masses, or fluid collections. No enlarged lymph nodes. No soft tissue lacerations or debris. Vascular: Visualized vascular structures appear normal in the absence of contrast. Bony vascular foramina and canals are intact. IMPRESSION: Small right periorbital soft tissue hematoma without evidence of orbital fracture or ocular injury. Approved by: Clayton Comer M.D. on 06/16/2024 at 17:34
--- NOTE | 2024-06-16 17:47 | DI.CT.S_ITS ---
PROCEDURE: CT HEAD/BRAIN WO CON INDICATIONS: fall on thinner TECHNIQUE: Noncontrast 4.5 mm thick angled axial sections acquired from the foramen magnum to the vertex, with coronal and sagittal reformats. For radiation dose reduction, the following was used: automated exposure control, adjustment of mA and/or kV according to patient size. COMPARISON: [facility], CT, CT HEAD/BRAIN WO CON, 02/27/2021, 12:00. FINDINGS: Image quality: Diagnostic. CSF spaces: Basal cisterns are patent. No extra-axial fluid collections. Ventricles are normal in size and shape. Brain: No midline shift. No intracranial masses or hemorrhage. Salguero-white matter interface is normal. Moderate cerebral and cerebellar volume loss with multifocal white matter chronic ischemic change noted. Atherosclerotic calcification noted associated with cavernous segments of both internal carotid arteries. Skull and face: Calvarium and visualized facial bones are intact, without suspicious lesions. Sinuses: Visualized sinuses and mastoids are clear. IMPRESSION: Atrophy and chronic ischemic change without acute hemorrhage or mass effect Approved by: Clayton Comer M.D. on 06/16/2024 at 17:35
[2024-06-16 18:05] VITALS: PULSE 86; RESP 18; O2SAT 92
[2024-06-16 18:06] VITALS: BP 165/81; PULSE 88; RESP 21; O2SAT 93
[2024-06-16 18:29] LABS: Add Manual Diff / Slide Review NO; Basophils Absolute Auto 0 /uL (0-100); Basophils Percent Auto 0.4 % (0-2); Eosinophils Absolute Auto 100 /uL (0-450); Hematocrit 36.5 % (36-46); Hemoglobin 12.4 g/dL (12.0-16.0); Lymphocytes Absolute Auto 2200 /uL (1100-4500); Lymphocytes Percent Auto 33.3 % (25-40); Mean Corpuscular Hemoglobin 33.7 PG (26-34); Monocytes Absolute Auto 800 /uL (0-900); Monocytes Percent Auto 12.8 % (3-14); Neutrophils Absolute Auto 3400 /uL (1500-7000); Neutrophils Percent Auto 51.5 % (50-75); Platelet Count 294 X10^3/uL (150-400); Red Blood Cell Count 3.68 X10^6/uL (4.0-5.2); Red Cell Distribution Width 14.8 % (11.6-14.8); White Blood Cell Count 6.6 X10^3/uL (4.5-11.0)
[2024-06-16 18:30] VITALS: BP 157/94; PULSE 93; RESP 17; O2SAT 93
[2024-06-16 18:40] LABS: INR 1.1 (0.9-1.3)
[2024-06-16 18:42] LABS: Alanine Aminotransferase 21 IU/L (<35); Albumin 4.2 g/dL (3.5-5.0); Albumin Globulin Ratio 1.5 (1.0-2.8); Alkaline Phosphatase 136 U/L (38-126); Aspartate Aminotransferase 41 IU/L (14-36); BUN Creatinine Ratio 18.8 (6-22); Bilirubin Total 0.5 mg/dL (0.2-1.3); Blood Urea Nitrogen 13 mg/dL (7-17); Calcium 9.4 mg/dL (8.4-10.2); Carbon Dioxide 26 mmol/L (22-32); Chloride 102 mmol/L (98-107); Estimated Glomerular Filt Rate > 60 mL/min (>60); Globulin 2.8 g/dL (1.7-4.1); Glucose 95 mg/dL (80-110); HEMOLYSIS < 15 (0-50); Lactate (Lactic Acid) 1.1 mmol/L (0.7-2.1); Potassium 4.1 mmol/L (3.4-5.1); Sodium 135 mmol/L (137-145)
[2024-06-16 18:43] LABS: PTT Partial Thromboplastin Tim 46 SECONDS (25.1-36.5)
[2024-06-16 19:00] VITALS: BP 164/78; PULSE 94; RESP 17; O2SAT 93
--- NOTE | 2024-06-16 19:19 | ED_ITS ---
HPI - General Adult General Chief complaint: Trauma Stated complaint: GLF, On Thinners Time Seen by Provider: 06/16/24 17:56 Source: patient and EMS Mode of arrival: EMS History of Present Illness HPI narrative: Patient is a 73-year-old female. Is on anticoagulation. Is here for evaluation of injuries that she sustained when she fell earlier today. She stated that she was going out to take her dog for a walk in the dog lunged after another animal and pulled her forward. She has baseline balance issues and has been going to physical therapy for this. She had no loss of consciousness. Sustained a bruise to her right hand. A cut to the right side of her face. No hip pain or lower extremity injuries. No dental discomfort. Related Data Home Medications Medication Instructions Recorded Confirmed niacin 500 mg tablet 500 mg PO 1XD ##0 02/28/17 06/11/24 calcium 2 tab PO 1XD 05/16/18 06/11/24 carbonate,citrate-magnesium oxide 200 mg calcium-50 mg tablet omega-3 fatty acids 1,000 mg 1,000 mg PO DAILY 05/16/18 06/11/24 capsule (Fish Oil Concentrate) metoprolol succinate 25 mg 12.5 mg PO BID 04/07/22 06/11/24 tablet,extended release 24 hr (Toprol XL) flecainide 100 mg tablet 100 mg PO BID 09/20/23 06/11/24 gabapentin 300 mg capsule 300 mg PO DAILY Nerve Pain 06/11/24 06/11/24 Previous Rx's Medication Instructions Recorded Disabled Parking Permit #1 ea 04/20/23 apixaban 5 mg tablet (Eliquis) 5 mg PO BID #180 tabs 10/18/23 atorvastatin 20 mg tablet 20 mg PO ONCE PM #90 tabs 02/01/24 hydrochlorothiazide 12.5 mg tablet 12.5 mg PO DAILY #30 tabs 02/13/24 lisinopril 20 mg tablet 20 mg PO DAILY #90 tabs 06/06/24 tramadol 50 mg tablet 50 mg PO TID PRN pain #30 tabs 06/11/24 Allergies Allergy/AdvReac Type Severity Reaction Status Date / Time prednisone AdvReac Severe Rash Verified 06/16/24 18:00 Review of Systems Review of Systems ROS Unobtainable: All systems reviewed & are unremarkable except as noted in HPI and below Patient History Medical History Spastic gait determined by examination Cervical myelopathy Headache Heart failure with preserved ejection fraction, NYHA class II Radiculopathy of cervical spine Paroxysmal atrial fibrillation (01/03/18) Essential hypertension (03/28/17) Chronic systolic congestive heart failure (03/28/17) Chronic atrial fibrillation (03/28/17) Pure hypercholesterolemia (09/15/15) Juvenile idiopathic scoliosis of thoracolumbar region (09/15/15) Surgical History Anesthesia Torn rotator cuff (~2010) Status post hysterectomy Status post cholecystectomy History of knee replacement History of knee replacement History of hip replacement History of hip replacement Family History Brother Age: 82 Pacemaker Hypertension High cholesterol Brother Age: 82 Hypertension High cholesterol Father Heart disease Mother High cholesterol Sister Age: 85 Hypertension High cholesterol Social History marital status: household members: spouse Smoking Status: Never smoker alcohol intake: current substance use type: does not use Smoking Status: Never smoker alcohol intake frequency: holidays/special occasions only Substance Use Type: does not use Exam Initial Vital Signs Initial Vital Signs: Vital Signs Temperature 98.1 F 06/16/24 17:40 Pulse Rate 79 06/16/24 17:40 Respiratory Rate 18 06/16/24 17:40 Blood Pressure 168/94 H 06/16/24 17:40 Pulse Oximetry 94 06/16/24 17:40 Oxygen Delivery Method Room Air 06/16/24 17:40 Const General: cooperative, comfortable and No ill appearing [facility] Head: abrasion (Right forehead) and laceration (Just lateral to the right eye) Eyes Pupils: PERRL Cardio Rate: regular rate Rhythm: regular rhythm GI Palpation: soft and No firm Skin Other: Patient has a contusion to the dorsum of the right hand, to 0.5 cm lacerations just lateral to the right eye. No active bleeding. Neuro General: patient alert, patient awake, patient oriented x3 and moves all extremities Extrem Other: Pelvis is stable. No lower extremity injuries. Does have a contusion to the dorsum of the right hand what she was able to flex and extend at the MCP joints and at the wrist. Is able to pronate and supinate. Procedures Laceration Repair Laceration 1: Site: face Side (If applicable): right Size (cm): 0.5 Description: linear Depth: simple, single layer Skin layer closed with: dermabond Scores GCS Neolle coma scale eye opening: Spontaneous [place] coma scale verbal response: Orientated [place] coma scale motor response: Obey commands Noelle coma scale total score: 15 Course Orders Ordered: ED Orders 06/16/24 17:45 CT cervical spine wo con Stat 06/16/24 17:47 CT facial bones wo con Stat CT head/brain wo con Stat 06/16/24 18:05 Type and Screen Stat 06/16/24 18:10 Complete Blood Count AUTO DIFF Stat Comprehensive Metabolic Panel Stat Lactate (Lactic Acid) Stat PTT Partial Thromboplastin Eliseo Stat Prothrombin Time INR Stat Vital Signs Vital signs: Vital Signs - 8 hr 06/16/24 18:06 06/16/24 18:06 06/16/24 18:30 Pulse Rate 88 Respiratory Rate 21 Blood Pressure 165/81 H 157/94 H Pulse Oximetry 93 Oxygen Delivery Method Room Air 06/16/24 18:30 06/16/24 19:00 06/16/24 19:00 Pulse Rate 93 H 94 H Respiratory Rate 17 17 Blood Pressure 164/78 H Pulse Oximetry 93 93 Oxygen Delivery Method Room Air Medical Decision Making Lab Data Lab results reviewed: Yes I reviewed the patient's lab results. 06/16/24 18:10 06/16/24 18:10 Labs: Lab Results 06/16/24 06/16/24 Range/Units 18:05 18:10 WBC 6.6 (4.5-11.0) X10^3/uL RBC 3.68 L (4.0-5.2) X10^6/uL Hgb 12.4 (12.0-16.0) g/dL Hct 36.5 (36-46) % MCV 99.0 (80-100) fL MCH 33.7 (26-34) PG MCHC 34.0 (30-36) % RDW 14.8 (11.6-14.8) % Plt Count 294 (150-400) X10^3/uL Neut % (Auto) 51.5 (50-75) % Lymph % (Auto) 33.3 (25-40) % Barren % (Auto) 12.8 (3-14) % Eos % (Auto) 2.0 (2-4) % Baso % (Auto) 0.4 (0-2) % Neut # (Auto) 3400 (8129-1502) /uL Lymph # (Auto) 2200 (9641-7070) /uL Barren # (Auto) 800 (0-900) /uL Eos # (Auto) 100 (0-450) /uL Baso # (Auto) 0 (0-100) /uL PT 13.0 H (9.4-12.5) SECONDS INR 1.1 (0.9-1.3) APTT 46 H (25.1-36.5) SECONDS Sodium 135 L (137-145) mmol/L Potassium 4.1 (3.4-5.1) mmol/L Chloride 102 (98-107) mmol/L Carbon Dioxide 26 (22-32) mmol/L BUN 13 (7-17) mg/dL Creatinine 0.69 (0.52-1.04) mg/dL Estimated GFR > 60 (>60) mL/min BUN/Creatinine Ratio 18.8 (6-22) Glucose 95 (80-110) mg/dL Lactate 1.1 (0.7-2.1) mmol/L Calcium 9.4 (8.4-10.2) mg/dL Total Bilirubin 0.5 (0.2-1.3) mg/dL AST 41 H (14-36) IU/L ALT 21 (<35) IU/L Alkaline Phosphatase 136 H (38-126) U/L Total Protein 7.0 (6.3-8.2) g/dL Albumin 4.2 (3.5-5.0) g/dL Globulin 2.8 (1.7-4.1) g/dL Albumin/Globulin Ratio 1.5 (1.0-2.8) Blood Type O Negative Antibody Screen Negative Imaging Data CT - cervical spine: Radiologist's Impression: PROCEDURE: CT CERVICAL SPINE WO CON INDICATIONS: fall on thinner TECHNIQUE: Noncontrast 3 mm thick sections acquired from the skull base to the T4 level. Sagittal and coronal reformats were then constructed. For radiation dose reduction, the following was used: automated exposure control, adjustment of mA and/or kV according to patient size. COMPARISON: [facility], CT, CT CERVICAL SPINE WO CON, 02/27/2021, 12:00. FINDINGS: Image quality: Excellent. Bones: No fractures or dislocations. Visualized superior ribs are intact. Posterolateral fusion C3 through C6 with decompressive laminectomies at C4, C5 and C6. Posterior ana and screw instrumentation in good position. No evidence of hardware failure or loosening. Diffuse disc space narrowing present. Craniovertebral relationships normal Soft tissues: Prevertebral soft tissues are normal in thickness. No paravertebral hematomas. No apical pneumothoraces. IMPRESSION: No evidence of fracture or traumatic malalignment. Instrumented midcervical spine posterolateral fusion with posterior decompression . No evidence of hardware failure or loosening. CT facial bones: Radiologist's Impression: PROCEDURE: CT FACIAL BONES WO CON INDICATIONS: fall on thinners TECHNIQUE: Noncontrast 2.5 mm thick axial images acquired from the mandible through the frontal sinuses, with coronal and sagittal reformatting. For radiation dose reduction, the following was used: automated exposure control, adjustment of mA and/or kV according to patient size. COMPARISON: [facility], CT, CT FACIAL BONES WO CON, 02/27/2021, 12:00. FINDINGS: Image quality: Excellent. Bones and teeth: Orbital mario are intact. Sinus mario show no fracture or deformity. Nasal bones and septum are intact. Visualized portions of the mandible demonstrate no fractures or subluxation. Zygomatic arches are intact. Pterygoid plates are intact. Visualized portions of the skull base and auditory canals are intact. Sinuses: Paranasal sinuses are aerated, without fluid levels, mucosal thickening, or mucoceles. Mastoid air cells are aerated. Soft tissues: No edema, masses, or fluid collections. No enlarged lymph nodes. No soft tissue lacerations or debris. Vascular: Visualized vascular structures appear normal in the absence of contrast. Bony vascular foramina and canals are intact. IMPRESSION: Small right periorbital soft tissue hematoma without evidence of orbital fracture or ocular injury. CT scan - head: Radiologist's Impression: PROCEDURE: CT HEAD/BRAIN WO CON INDICATIONS: fall on thinner TECHNIQUE: Noncontrast 4.5 mm thick angled axial sections acquired from the foramen magnum to the vertex, with coronal and sagittal reformats. For radiation dose reduction, the following was used: automated exposure control, adjustment of mA and/or kV according to patient size. COMPARISON: [facility], CT, CT HEAD/BRAIN WO CON, 02/27/2021, 12:00. FINDINGS: Image quality: Diagnostic. CSF spaces: Basal cisterns are patent. No extra-axial fluid collections. Ventricles are normal in size and shape. Brain: No midline shift. No intracranial masses or hemorrhage. Salguero-white matter interface is normal. Moderate cerebral and cerebellar volume loss with multifocal white matter chronic ischemic change noted. Atherosclerotic calcification noted associated with cavernous segments of both internal carotid arteries. Skull and face: Calvarium and visualized facial bones are intact, without suspicious lesions. Sinuses: Visualized sinuses and mastoids are clear. IMPRESSION: Atrophy and chronic ischemic change without acute hemorrhage or mass effect MDM Narrative Medical decision making narrative: CT scan showed no fractures or dislocations. The small lacerations were closed with Dermabond and Steri-Strips. She has a contusion on the back of the right hand but low suspicion for fracture as she was full range of motion of all joints associated in the local area. This does appear to be a mechanical fall as she was pulled over by her dog. Patient was discharged home with return precautions. She expressed understanding and agreement. Discharge Plan Departure Patient Disposition: Home Clinical Impression: Closed head injury, Laceration of face Instructions: DI for Laceration Repair-Skin Glue, Closed Head Injury Activity Restrictions/Additional Instructions: Continue to take all of your medications as directed. You can shower like normal. I do recommend you put ice over the cut on the right side of your face. I would not be surprised if you develop a black eye on the side over the next 24 hours. Return to the emergency department for new or worsening symptoms. Prescriptions: No Action metoprolol succinate [Toprol XL] 25 mg tablet extended release 24 hr 12.5 mg PO BID niacin 500 MG tablet 500 mg PO 1XD Qty: 0 (DME) Disabled Parking Permit See Rx Instructions .ROUTE .MEDSUPPLY Qty: 1 0RF Rx Instructions: I find this person to be disabled Eliquis 5 mg tablet 5 mg PO BID Qty: 180 3RF atorvastatin 20 mg tablet 20 mg PO ONCE PM Qty: 90 3RF lisinopril 20 mg tablet 20 mg PO DAILY Qty: 90 3RF omega-3 fatty acids [Fish Oil Concentrate] 1,000 mg capsule 1,000 mg PO DAILY calcium carb and citrat-mag ox 200 mg calcium- 50 mg tablet 2 tab PO 1XD hydrochlorothiazide 12.5 mg tablet 12.5 mg PO DAILY Qty: 30 1RF gabapentin 300 mg capsule 300 mg PO DAILY Patient Comments: I'm to take 1 capsule at night for 1st week then 2 the second week followed by 3 the third week. Then 3 times daily after that. tramadol 50 mg tablet 50 mg PO TID PRN (Reason: pain) Qty: 30 0RF Rx Instructions: Take one tablet every 8 hours with one 650mg Tylenol for post-operative neck pain flecainide 100 mg tablet 100 mg PO BID Referrals: Alonso Cervantes MD [Primary Care Provider] - Stand Alone Forms: Patient Portal/API
== END 2024-06-16 19:30 | disposition home or self-care (01) ==
PROVIDERS: Emergency Medicine; Emergency Provider Emergency Medicine; PCP Family Medicine
DX: S09.90XA Unspecified injury of head, initial encounter (principal); S01.81XA Laceration without foreign body of other part of head, initial encounter; S60.221A Contusion of right hand, initial encounter; W18.30XA Fall on same level, unspecified, initial encounter; Z79.01 Long term (current) use of anticoagulants; Z79.899 Other long term (current) drug therapy
CPT/HCPCS: 12011; 70450; 70486; 72125; 80053; 83605; 85025; 85610; 85730; 86850; 86900; 86901; 99284

== ENCOUNTER → 2024-07-12 11:36 | Outpatient (CLI) | payer OTHER, SELFPAY ==
[2024-07-12 12:13] LABS: Add Manual Diff / Slide Review NO; Basophils Absolute Auto 0 /uL (0-100); Basophils Percent Auto 0.5 % (0-2); Eosinophils Absolute Auto 200 /uL (0-450); Eosinophils Percent Auto 2.1 % (2-4); Hemoglobin 12.8 g/dL (12.0-16.0); Lymphocytes Absolute Auto 2100 /uL (1100-4500); Lymphocytes Percent Auto 27.9 % (25-40); Mean Corpuscular HGB Conc 33.7 % (30-36); Mean Corpuscular Hemoglobin 33.4 PG (26-34); Monocytes Absolute Auto 800 /uL (0-900); Monocytes Percent Auto 10.1 % (3-14); Neutrophils Absolute Auto 4500 /uL (1500-7000); Neutrophils Percent Auto 59.4 % (50-75); Platelet Count 329 X10^3/uL (150-400); Red Blood Cell Count 3.84 X10^6/uL (4.0-5.2); Red Cell Distribution Width 14.4 % (11.6-14.8); White Blood Cell Count 7.6 X10^3/uL (4.5-11.0)
[2024-07-12 12:30] LABS: BUN Creatinine Ratio 17.8 (6-22); Blood Urea Nitrogen 13 mg/dL (7-17); Calcium 9.6 mg/dL (8.4-10.2); Carbon Dioxide 29 mmol/L (22-32); Chloride 100 mmol/L (98-107); Estimated Glomerular Filt Rate > 60 mL/min (>60); Glucose 85 mg/dL (80-110); HEMOLYSIS < 15 (0-50); Potassium 4.4 mmol/L (3.4-5.1); Sodium 136 mmol/L (137-145)
== END ==
PROVIDERS: PCP Family Medicine; Referring Provider Nurse Practitioner Family; Visit Provider Nurse Practitioner Family
DX: I48.0 Paroxysmal atrial fibrillation (principal)
CPT/HCPCS: 36415; 80048; 85025

== ENCOUNTER → 2024-08-21 11:02 | Outpatient (CLI) | payer OTHER, SELFPAY ==
[2024-08-21 12:19] LABS: Add Manual Diff / Slide Review NO; Basophils Absolute Auto 0 /uL (0-100); Basophils Percent Auto 0.5 % (0-2); Eosinophils Absolute Auto 300 /uL (0-450); Eosinophils Percent Auto 2.8 % (2-4); Hematocrit 37.6 % (36-46); Hemoglobin 12.8 g/dL (12.0-16.0); Lymphocytes Absolute Auto 2700 /uL (1100-4500); Lymphocytes Percent Auto 29.6 % (25-40); Mean Corpuscular Hemoglobin 33.1 PG (26-34); Mean Corpuscular Volume 97.3 fL (80-100); Monocytes Absolute Auto 1000 /uL (0-900); Monocytes Percent Auto 11.1 % (3-14); Neutrophils Absolute Auto 5100 /uL (1500-7000); Platelet Count 337 X10^3/uL (150-400); Red Blood Cell Count 3.87 X10^6/uL (4.0-5.2); Red Cell Distribution Width 13.9 % (11.6-14.8); White Blood Cell Count 9.1 X10^3/uL (4.5-11.0)
[2024-08-21 12:50] LABS: BUN Creatinine Ratio 22.5 (6-22); Blood Urea Nitrogen 16 mg/dL (7-17); Calcium 9.7 mg/dL (8.4-10.2); Carbon Dioxide 26 mmol/L (22-32); Chloride 99 mmol/L (98-107); Estimated Glomerular Filt Rate > 60 mL/min (>60); Glucose 87 mg/dL (80-110); HEMOLYSIS < 15 (0-50); Potassium 5.2 mmol/L (3.4-5.1); Sodium 134 mmol/L (137-145)
== END ==
PROVIDERS: PCP Family Medicine; Referring Provider Internal Medicine Cardiovascular Disease; Visit Provider Internal Medicine Cardiovascular Disease
DX: I48.0 Paroxysmal atrial fibrillation (principal)
CPT/HCPCS: 36415; 80048; 85025

== ENCOUNTER → 2024-09-02 11:54 | Outpatient (CLI) | payer OTHER, SELFPAY ==
[2024-09-02 13:27] LABS: Add Manual Diff / Slide Review NO; Basophils Absolute Auto 0 /uL (0-100); Basophils Percent Auto 0.4 % (0-2); Eosinophils Absolute Auto 200 /uL (0-450); Hematocrit 38.9 % (36-46); Hemoglobin 12.9 g/dL (12.0-16.0); Lymphocytes Absolute Auto 2300 /uL (1100-4500); Lymphocytes Percent Auto 32.9 % (25-40); Mean Corpuscular HGB Conc 33.1 % (30-36); Mean Corpuscular Hemoglobin 32.5 PG (26-34); Mean Corpuscular Volume 98.2 fL (80-100); Monocytes Absolute Auto 700 /uL (0-900); Monocytes Percent Auto 10.1 % (3-14); Neutrophils Absolute Auto 3800 /uL (1500-7000); Neutrophils Percent Auto 53.6 % (50-75); Platelet Count 302 X10^3/uL (150-400); Red Blood Cell Count 3.96 X10^6/uL (4.0-5.2); Red Cell Distribution Width 14.5 % (11.6-14.8)
[2024-09-02 13:48] LABS: BUN Creatinine Ratio 17.5 (6-22); Blood Urea Nitrogen 14 mg/dL (7-17); Calcium 9.5 mg/dL (8.4-10.2); Carbon Dioxide 28 mmol/L (22-32); Chloride 100 mmol/L (98-107); Estimated Glomerular Filt Rate > 60 mL/min (>60); Glucose 91 mg/dL (80-110); HEMOLYSIS < 15 (0-50); Potassium 4.8 mmol/L (3.4-5.1); Sodium 133 mmol/L (137-145)
== END ==
LOC: LAB 11:57
PROVIDERS: PCP Family Medicine; Referring Provider Internal Medicine Cardiovascular Disease; Visit Provider Internal Medicine Cardiovascular Disease
DX: I48.0 Paroxysmal atrial fibrillation (principal)
CPT/HCPCS: 36415; 80048; 85025

== ENCOUNTER → 2024-10-03 11:09 | Outpatient (CLI) | payer OTHER, SELFPAY | PROVIDERS: PCP Family Medicine; Visit Provider Family Medicine | DX: R31.9 Hematuria, unspecified (principal) | CPT/HCPCS: 87077; 87086; 87186 ==

== ENCOUNTER 2025-04-17 09:04 | Emergency (ER) | payer OTHER, SELFPAY ==
[2025-04-17 09:28] VITALS: PULSE 64; O2SAT 97
[2025-04-17 09:29] VITALS: BP 192/89; PULSE 61; O2SAT 97
[2025-04-17 09:30] VITALS: BP 190/92; PULSE 59; RESP 16; O2SAT 96
[2025-04-17 09:35] VITALS: BP 192/89; PULSE 60; RESP 15; TEMP 36.4; O2SAT 97; BMI 34.5
--- NOTE | 2025-04-17 09:35 | DI.RAD.S_ITS ---
PROCEDURE: XR SHOULDER LT MIN 2V INDICATIONS: left shoulder TECHNIQUE: 3 views of the shoulder were acquired. COMPARISON: [facility], , SHOULDER MINIMUM 2VIEW RIGHT, 02/04/2016, 10:51. FINDINGS AND IMPRESSION: Mild acromioclavicular and glenohumeral degenerative changes. Prominent downward projecting osteophytes from the acromion. No displaced fracture or dislocation. No suspicious soft tissue calcifications otherwise. Partially seen left chest wall pulse generator and cervical fusion hardware. If there is high concern for further derangement, consider MRI evaluation. Dictated by: Roland Momin M.D. on 04/17/2025 at 10:27 Approved by: Roland Momin M.D. on 04/17/2025 at 10:28
--- NOTE | 2025-04-17 09:36 | ED.UPPEXIN ---
HPI - Extremity Injury (Upper) General Chief Complaint: Extremity Problem,Nontraumatic Stated Complaint: left shoulder pain x 2 days Time Seen by Provider: 04/17/25 09:09 History of Present Illness HPI narrative: 74-year-old female history AFib on Eliquis presents with left shoulder pain for 2 days unable to lift it above shoulder level unassisted and now experiencing numbness tingling down the hand. Patient has taken half a tablet of tramadol and has had no significant relief of her symptoms. Patient denies chest pain, back pain, shortness of breath, cough, dyspnea on exertion, and worsening neck pain. Other than what is stated 14 point review of system is negative. Related Data Home Medications ?Medication ?Instructions ?Recorded ?Confirmed niacin 500 mg tablet 500 mg PO 1XD ##0 02/28/17 10/07/24 calcium 200 mg (carbonate, 2 tab PO 1XD 05/16/18 10/07/24 citrate)-magnesium 50 mg (as oxide) tablet omega-3 fatty acids 1,000 mg 1,000 mg PO DAILY 05/16/18 10/07/24 capsule (Fish Oil Concentrate) metoprolol succinate 25 mg 12.5 mg PO BID 04/07/22 10/07/24 tablet,extended release 24 hr (Toprol XL) amiodarone 200 mg tablet 200 mg PO DAILY 07/11/24 10/07/24 Previous Rx's ?Medication ?Instructions ?Recorded Disabled Parking Permit #1 ea 04/20/23 gabapentin 300 mg capsule 300 mg PO BID Nerve Pain #180 caps 10/07/24 lisinopril 40 mg tablet 20 mg (1/2 x 40 mg) PO DAILY #90 10/07/24 tabs apixaban 5 mg tablet (Eliquis) 5 mg PO BID #180 tabs 10/22/24 atorvastatin 20 mg tablet 20 mg PO QPM #90 tabs 01/27/25 tramadol 50 mg tablet 50 mg PO DAILY PRN pain #30 tabs 04/03/25 hydrocodone 5 mg-acetaminophen 325 1 tab PO Q4-6H PRN pain #20 tabs 04/17/25 mg tablet Allergies Allergy/AdvReac Type Severity Reaction Status Date / Time prednisone AdvReac Severe Rash Verified 04/17/25 09:38 Review of Systems Review of Systems ROS Unobtainable: All systems reviewed & are unremarkable except as noted in HPI and below Patient History Medical History Spastic gait determined by examination Cervical myelopathy Headache Heart failure with preserved ejection fraction, NYHA class II Radiculopathy of cervical spine Paroxysmal atrial fibrillation (01/03/18) Essential hypertension (03/28/17) Chronic systolic congestive heart failure (03/28/17) Chronic atrial fibrillation (03/28/17) Pure hypercholesterolemia (09/15/15) Juvenile idiopathic scoliosis of thoracolumbar region (09/15/15) Surgical History Anesthesia Torn rotator cuff (~2010) Status post hysterectomy Status post cholecystectomy History of knee replacement History of knee replacement History of hip replacement History of hip replacement Family History Brother Age: 83 Pacemaker Hypertension High cholesterol Brother Age: 83 Hypertension High cholesterol Father Heart disease Mother High cholesterol Sister Age: 86 Hypertension High cholesterol Social History marital status: household members: spouse Smoking Status: Never smoker alcohol intake: current substance use type: does not use alcohol intake frequency: holidays/special occasions only Exam Narrative Exam Narrative: GENERAL: [74] year old patient appears stated age. Well-developed patient, in mild distress. HEAD: Atraumatic. Normocephalic. EYES: Pupils equal round and reactive. Extraocular motions intact. No scleral icterus. No injection or drainage. NECK: Trachea midline. Non tender CARDIOVASCULAR: Regular rate and rhythm without murmurs, gallops, or rubs. RESPIRATORY: Clear to auscultation. Breath sounds equal bilaterally. No wheezes, rales, or rhonchi. EXTREMITIES: Left shoulder decreased range of motion flexion extension abduction to 90? and sensory intact +2 radial pulse cap refill less than 2 seconds BACK: Nontender without deformity or crepitance. No flank tenderness. NEURO: AOx3. SKIN: No rash or erythema of visible areas Initial Vital Signs Initial Vital Signs: Vital Signs Pulse Rate 64 04/17/25 09:28 Pulse Oximetry 97 04/17/25 09:28 [place] [facility] [place] Procedure: L shoulder steroid injection Side (if applicable): left Time out performed: Yes Technique/Description of procedure performed: Left shoulder steroid injection using 2% lidocaine 4 mL without epi and 40 mg of Kenalog 1 mL in a 5 cc syringe patient tolerated procedure with no complication. Patient tolerated procedure: Well Complications: none Course Orders Ordered: Discontinued Medications Lidocaine HCl (Lidocaine 2% Inj Mdv 20ml) 4 ml INJ INTRA-OP ONE Stop: 04/17/25 09:36 Last Admin: 04/17/25 09:59 Dose: 4 ml Documented By: YESSY Triamcinolone (Triamcinolone 40 Mg/Ml Vial) 40 mg INJ NOW ONE Stop: 04/17/25 09:36 Last Admin: 04/17/25 10:00 Dose: 40 mg Documented By: YESSY MORTON - Extremity Injury (Upper) Imaging Data Extremity x-ray #1: Radiologist's Impression: [address] [address] XRay Report Signed Patient: Carrie Fernandes MR#: [id number] : 1950 Acct:[id number] Age/Sex: 74 / F Date of Service: 04/17/25 Loc: ED Accession Number: [id number] Procedure: XR shoulder LT 2+ views Ordering Provider: Fan Chairez D.O. PROCEDURE: XR SHOULDER LT MIN 2V INDICATIONS: left shoulder TECHNIQUE: 3 views of the shoulder were acquired. COMPARISON: Merged With [facility], , SHOULDER MINIMUM 2VIEW RIGHT, 02/04/2016, 10:51. FINDINGS AND IMPRESSION: Mild acromioclavicular and glenohumeral degenerative changes. Prominent downward projecting osteophytes from the acromion. No displaced fracture or dislocation. No suspicious soft tissue calcifications otherwise. Partially seen left chest wall pulse generator and cervical fusion hardware. If there is high concern for further derangement, consider MRI evaluation. [facility] Narrative Medical decision making narrative: Vital signs, nurse triage note, medication list, previous ER visits, and all imaging studies reviewed. Patient had Kenalog injection, and given norco. Shoulder x-ray showed mild acromioclavicular and glenohumeral degenerative changes. Prominent downward projecting osteophytes from the acromion. No displaced fracture or dislocation. No suspicious soft tissue calcifications otherwise. Partially seen left chest wall pulse generator and cervical fusion hardware. Differential diagnosis osteoarthritis, fracture, dislocation, rotator cuff tendinitis, ligament, tendon injury and tear DC home on [address] and to follow up with [facility]. Discharge Plan Departure Patient Disposition: Home Clinical Impression: Acute shoulder pain Qualifiers: Laterality: left Qualified Code(s): M25.512 - Pain in left shoulder Instructions: DI for Shoulder Pain Activity Restrictions/Additional Instructions: Return with new or worsening symptoms. Follow up with [facility] referral. Take medicine as directed Prescriptions: New hydrocodone-acetaminophen 5-325 mg tablet 1 tab PO Q4-6H PRN (Reason: pain) Qty: 20 0RF No Action metoprolol succinate [Toprol XL] 25 mg tablet extended release 24 hr 12.5 mg PO BID niacin 500 MG tablet 500 mg PO 1XD Qty: 0 (DME) Disabled Parking Permit See Rx Instructions .ROUTE .MEDSUPPLY Qty: 1 0RF Rx Instructions: I find this person to be disabled amiodarone 200 mg tablet 200 mg PO DAILY Rx Instructions: Take 200mg BID x 14days. Start 200mg QD Jul.14 Eliquis 5 mg tablet 5 mg PO BID Qty: 180 3RF atorvastatin 20 mg tablet 20 mg PO QPM Qty: 90 3RF tramadol 50 mg tablet 50 mg PO DAILY PRN (Reason: pain) Qty: 30 0RF Rx Instructions: Take one tablet every 8 hours with one 650mg Tylenol for post-operative neck pain omega-3 fatty acids [Fish Oil Concentrate] 1,000 mg capsule 1,000 mg PO DAILY calcium carb and citrat-mag ox 200 mg calcium- 50 mg tablet 2 tab PO 1XD gabapentin 300 mg capsule 300 mg PO BID Qty: 180 3RF lisinopril 40 mg tablet 20 mg PO DAILY Qty: 90 3RF Referrals: Alonso Cervantes MD [Primary Care Provider, Family Practice] Stand Alone Forms: Patient Portal/API
[2025-04-17] MEDS: LIDOCAINE 2% INJ MDV 20ML 4 ML INJ (09:59)
[2025-04-17] MEDS: TRIAMCINOLONE 40 MG/ML VIAL INJ (10:00)
== END 2025-04-17 11:16 | disposition home or self-care (01) ==
PROVIDERS: Emergency Provider Family Medicine; PCP Family Medicine
DX: M25.512 Pain in left shoulder (principal); R20.0 Anesthesia of skin
CPT/HCPCS: 20610; 73030; 99283

== ENCOUNTER → 2025-05-22 11:59 | Outpatient (CLI) | payer OTHER, SELFPAY ==
[2025-05-22 12:59] LABS: Add Manual Diff / Slide Review NO; Hematocrit 37.1 % (36-46); Hemoglobin 12.7 g/dL (12.0-16.0); Lymphocytes Absolute Auto 1700 /uL (1100-4500); Mean Corpuscular HGB Conc 34.1 % (30-36); Mean Corpuscular Hemoglobin 35.6 PG (26-34); Mean Corpuscular Volume 104.2 fL (80-100); Platelet Count 265 X10^3/uL (150-400)
[2025-05-22 13:22] LABS: HEMOLYSIS < 15 (0-50); Iron 74 ug/dL (37-170)
[2025-05-22 13:26] LABS: Alanine Aminotransferase 33 IU/L (<35); Albumin 4.4 g/dL (3.5-5.0); Albumin Globulin Ratio 1.8 (1.0-2.8); Alkaline Phosphatase 95 U/L (38-126); Blood Urea Nitrogen 17 mg/dL (7-17); Calcium 9.6 mg/dL (8.4-10.2); Carbon Dioxide 26 mmol/L (22-32); Chloride 100 mmol/L (98-107); Estimated Glomerular Filt Rate > 60 mL/min (>60); Globulin 2.4 g/dL (1.7-4.1); Glucose 85 mg/dL (70-99); HEMOLYSIS < 15 (0-50); Magnesium 1.8 mg/dL (1.6-2.3); Potassium 4.8 mmol/L (3.4-5.1); Sodium 134 mmol/L (137-145); Total Protein 6.8 g/dL (6.3-8.2)
[2025-05-22 13:36] LABS: Percent Iron Saturation 22 % (15-50); Total Iron Binding Capacity 337 ug/dL (265-497); Transferrin 299 mg/dL (206-381)
[2025-05-22 13:53] LABS: TSH w/ Reflex to FT4 2.58 uIU/mL (0.47-4.68)
[2025-05-22 14:12] LABS: Vitamin B12 811 pg/mL (239-931)
== END ==
PROVIDERS: PCP Family Medicine; Referring Provider Physician Assistant; Visit Provider Physician Assistant
DX: Z79.01 Long term (current) use of anticoagulants (principal); R53.83 Other fatigue
CPT/HCPCS: 36415; 80053; 82607; 83540; 83550; 83735; 84443; 85025

== ENCOUNTER 2025-07-09 14:25 | Emergency (ER) | payer OTHER, SELFPAY ==
[2025-07-09 14:37] VITALS: BP 156/70; PULSE 60; RESP 16; TEMP 36.6; O2SAT 95; BMI 34.0
--- NOTE | 2025-07-09 14:47 | DI.CT.S_ITS ---
PROCEDURE: CT HEAD/BRAIN WO CON INDICATIONS: fall/hit head/on thinners TECHNIQUE: Noncontrast 4.5 mm thick angled axial sections acquired from the foramen magnum to the vertex, with coronal and sagittal reformats. For radiation dose reduction, the following was used: automated exposure control, adjustment of mA and/or kV according to patient size. COMPARISON: [facility], CT, CT HEAD/BRAIN WO CON, 06/16/2024, 17:52. FINDINGS: Image quality: Diagnostic. CSF spaces: Basal cisterns are patent. No extra-axial fluid collections. The ventricles are symmetric in size and shape. Brain: No intracranial bleeds or mass effect. There is cerebral volume loss, with resultant ventricular and sulcal prominence. There are periventricular and deep white matter chronic small vessel ischemic changes. There is intracranial internal carotid artery atherosclerosis. Skull and face: Calvarium and visualized facial bones appear intact, without suspicious lesions. Sinuses: Visualized sinuses and mastoids are clear. IMPRESSION: No acute intracranial pathology. Dictated by: Randall Quiros M.D. on 07/09/2025 at 15:11 Approved by: Randall Quiros M.D. on 07/09/2025 at 15:11
--- NOTE | 2025-07-09 14:47 | DI.CT.S_ITS ---
PROCEDURE: CT CERVICAL SPINE WO CON INDICATIONS: fall/hit head/on thinners TECHNIQUE: Noncontrast 3 mm thick sections acquired from the skull base to the T4 level. Sagittal and coronal reformats were then constructed. For radiation dose reduction, the following was used: automated exposure control, adjustment of mA and/or kV according to patient size. COMPARISON: [facility], CT, CT CERVICAL SPINE WO CON, 06/16/2024, 17:50. FINDINGS: Image quality: Excellent. Bones: No fractures or dislocations. Posterior spinal fixation spanning C3 through C6 with associated decompression. Multilevel degenerative changes of the cervical spine. Decreased osseous mineralization. Visualized superior ribs are intact. Soft tissues: Prevertebral soft tissues are normal in thickness. No paravertebral hematomas. No apical pneumothoraces. Partially visualized left chest wall pacemaker. IMPRESSION: No displaced fracture or traumatic subluxation. Stable postoperative changes without evidence of hardware complication. Dictated by: Jeremy Bustos M.D. on 07/09/2025 at 15:28 Approved by: Jeremy Bustos M.D. on 07/09/2025 at 15:34
--- NOTE | 2025-07-09 15:22 | ED_ITS ---
HPI - Head Injury General Chief complaint: Trauma Stated complaint: Fell hit back of head, on blood thinners Time Seen by Provider: 07/09/25 15:21 Source: patient Mode of arrival: Wheelchair History of Present Illness HPI Narrative: Modified trauma activated Primary survey A -airway intact B -equal breath sounds C -strong heart sounds D -no gross deformity Patient brought in by family for head injury. Patient is on apixaban for atrial fibrillation. Patient at 7:00 p.m. last night at home. She was trying to get away from the lift gate of her vehicle as it was coming down, she states she has bad balance and while backing up/walking back, she lost her balance and hit the ground with her head. Does complain of neck pain. Denies any other injuries. No loss of consciousness. No nausea or vomiting since injury. No vision c hanges. No new numbness tingling or weakness to the limbs. C-collar placed in triage. Related Data Home Medications ?Medication ?Instructions ?Recorded ?Confirmed calcium 200 mg (carbonate, 2 tab PO 1XD 05/16/1807/09 citrate)-magnesium 50 mg (as oxide) tablet amiodarone 200 mg tablet 200 mg PO DAILY 07/11/24 methocarbamol 500 mg tablet 500 mg PO 3XD PRN muscle s pasm 05/22/25 07/09/25 Previous Rx's ?Medication ?Instructions ?Recorded Disabled Parking Permit #1 ea 04/20/23 gabapentin 300 mg capsule 300 mg PO BID Nerve Pain #18 0 caps 10/07/24 apixaban 5 mg tablet (Eliquis) 5 mg PO BID #180 tabs 0 10/22/24 atorvastatin 20 mg tablet 20 mg PO QPM #90 tabs hydrocodone 5 mg-acetaminophen 325 1 tab PO Q4-6H PRN pain #20 tabs 04/17/25 mg tablet tramadol 50 mg tablet 50 mg PO DAILY PRN pain #30 tabs 05/22/25 metoprolol succinate 25 mg 12.5 mg (1/2 x 25 mg) PO BI D #90 05/26/25 tablet,extended release 24 hr tabs (Toprol XL) lisinopril 40 mg tablet 20 mg (1/2 x 40 mg) PO DAILY #90 06/23/25 tabs Allergies Allergy/AdvReac Type Severity Reaction Status Date / Time prednisone AdvReac Severe Rash Verified 07/09/25 14:05 Review of Systems Review of Systems Narrative: GENERAL: Negative chills, fatigue, malaise, fever, sweats. HEENT: Negative sinus pain, ear pain, sore throat RESPIRATORY: Negative dyspnea, cough CARDIOVASCULAR: Negative chest pain, palpitations GASTROINTESTINAL: Negative vomiting, nausea, abdominal pain : Negative dysuria, frequency, hematuria MUSCULOSKELETAL: Positive muscle or bony pain SKIN: Negative rash, skin lesions NEUROLOGIC: Negative weakness, numbness ROS Unobtainable: All systems reviewed & are unremarkable except as noted in HPI and below Patient History Medical History (Updated 07/09/25 @ 15:46 by Deepak Peterson MD) Spastic gait determined by examination Cervical myelopathy Headache Heart failure with preserved ejection fraction, NYHA class II Radiculopathy of cervical spine Paroxysmal atrial fibrillation (01/03/18) Essential hypertension (03/28/17) Chronic systolic congestive heart failure (03/28/17) Chronic atrial fibrillation (03/28/17) Pure hypercholesterolemia (09/15/15) Juvenile idiopathic scoliosis of thoracolumbar region (09/15/15) Surgical History (Updated 12/09/24 @ 09:37 by Alonso Cervantes MD) Anesthesia Torn rotator cuff (~2010) Status post hysterectomy Status post cholecystectomy History of knee replacement History of knee replacement History of hip replacement History of hip replacement Family History Brother Age: 83 Pacemaker Hypertension High cholesterol Brother Age: 83 Hypertension High cholesterol Father Heart disease Mother High cholesterol Sister Age: 86 Hypertension High cholesterol Social History marital status: household members: spouse Smoking Status: Never smoker alcohol intake: current substance use type: does not use Smoking Status: Never smoker alcohol intake frequency: holidays/special occasions only Exam Narrative Exam Narrative: GENERAL: in no distress, not toxic not dyspneic HEAD: Normocephalic. Mild tenderness of the occiput scalp. No crepitus or step-off. No blood or scab or laceration. EYES: Pupils equal round ENT: Mucous membranes moist. NECK: Trachea midline. No midline tenderness or step-off of the cervical spine. There is mild bilateral paracervical muscle tenderness. Patient is in C-collar CARDIOVASCULAR: Strong heart sounds. RESPIRATORY: Clear to auscultation. Breath sounds equal bilaterally. No wheezes, rales, or rhonchi. GASTROINTESTINAL: Abdomen soft, non-tender BACK: No flank tenderness. EXTREMITIES: No gross deformities. NEURO: AOx4. Clear speech SKIN: Warm and dry PSYCH: Not anxious, is cooperative Initial Vital Signs Initial Vital Signs: Vital Signs Temperature 97.9 F 07/09/25 14:37 Pulse Rate 60 07/09/25 14:37 Respiratory Rate 16 07/09/25 14:37 Blood Pressure 156/70 H 07/09/25 14:37 Pulse Oximetry 95 07/09/25 14:37 Oxygen Delivery Method Room Air 07/09/25 14:37 Course Orders Ordered: ED Orders 07/09/25 14:47 CT cervical spine wo con Stat CT head/brain wo con Stat Vital Signs Vital signs: Vital Signs - 8 hr 07/09/25 14:37 Temperature 97.9 F Pulse Rate 60 Respiratory Rate 16 Blood Pressure 156/70 H Pulse Oximetry 95 Oxygen Delivery Method Room Air MDM - Head Injury Imaging Data CT scan - head: Radiologist's Impression: [place] [address] CT Scan Report Signed Patient: Carrie Fernandes MR#: [id number] : 1950 Acct:[id number] Age/Sex: 74 / F Date of Service: 07/09/25 Loc: ED Accession Number: [id number] Procedure: CT head/brain wo con Ordering Provider: Deepak Peterson MD PROCEDURE: CT HEAD/BRAIN WO CON INDICATIONS: fall/hit head/on thinners TECHNIQUE: Noncontrast 4.5 mm thick angled axial sections acquired from the foramen magnum to the vertex, with coronal and sagittal reformats. For radiation dose reduction, the following was used: automated exposure control, adjustment of mA and/or kV according to patient size. COMPARISON: [facility], CT, CT HEAD/BRAIN WO CON, 06/16/2024, 17:52. FINDINGS: Image quality: Diagnostic. CSF spaces: Basal cisterns are patent. No extra-axial fluid collections. The ventricles are symmetric in size and shape. Brain: No intracranial bleeds or mass effect. There is cerebral volume loss, with resultant ventricular and sulcal prominence. There are periventricular and deep white matter chronic small vessel ischemic changes. There is intracranial internal carotid artery atherosclerosis. Skull and face: Calvarium and visualized facial bones appear intact, without suspicious lesions. Sinuses: Visualized sinuses and mastoids are clear. IMPRESSION: No acute intracranial pathology. Dictated by: Randall Quiros M.D. on 07/09/2025 at 15:11 Approved by: Randall Quiros M.D. on 07/09/2025 at 15:11 CT - cervical spine: Radiologist's Impression: [place] [address] CT Scan Report Signed Patient: Carrie Fernandes MR#: [id number] : 1950 Acct:[id number] Age/Sex: 74 / F Date of Service: 07/09/25 Loc: ED Accession Number: [id number] Procedure: CT cervical spine wo con Ordering Provider: Deepak Peterson MD PROCEDURE: CT CERVICAL SPINE WO CON INDICATIONS: fall/hit head/on thinners TECHNIQUE: Noncontrast 3 mm thick sections acquired from the skull base to the T4 level. Sagittal and coronal reformats were then constructed. For radiation dose reduction, the following was used: automated exposure control, adjustment of mA and/or kV according to patient size. COMPARISON: [facility], CT, CT CERVICAL SPINE WO CON, 06/16/2024, 17:50. FINDINGS: Image quality: Excellent. Bones: No fractures or dislocations. Posterior spinal fixation spanning C3 through C6 with associated decompression. Multilevel degenerative changes of the cervical spine. Decreased osseous mineralization. Visualized superior ribs are intact. Soft tissues: Prevertebral soft tissues are normal in thickness. No paravertebral hematomas. No apical pneumothoraces. Partially visualized left chest wall pacemaker. IMPRESSION: No displaced fracture or traumatic subluxation. Stable postoperative changes without evidence of hardware complication. Dictated by: Jeremy Bustos M.D. on 07/09/2025 at 15:28 Approved by: Jeremy Bustos M.D. on 07/09/2025 at 15:34 [facility] Narrative Medical decision making narrative: Patient brought in by family for head injury. Patient is on apixaban for atrial fibrillation. Patient at 7:00 p.m. last night at home. She was trying to get away from the lift gate of her vehicle as it was coming down, she states she has bad balance and while backing up/walking back, she lost her balance and hit the ground with her head. Does complain of neck pain. Denies any other injuries. No loss of consciousness. No nausea or vomiting since injury. No vision changes. No new numbness tingling or weakness to the limbs. C-collar placed in triage. MDM After history and exam, no blood work indicated this time. CT head CT cervical sign ordered. Patient does not want anything for pain. Patient behaving at baseline. Differential considered: Includes but not limited to scalp contusion skull fracture intracranial bleed cervical strain/fracture Medical records reviewed: No recent visit for this complaint Imaging studies independently reviewed: CT head no acute finding CT cervical spine no acute finding Consultations: None indicated at this time Re-evaluations: 3:44 p.m.. Updated patient and family results. Return precautions reviewed with them. Not toxic at discharge. Pain is controlled. C-collar cleared, CT cervical spine reassuring. Discussion: Appropriate for discharge home. Exam is reassuring. No new neuro deficits. Pain is controlled. Return precautions reviewed with patient and family. They desire discharge home. Diagnosis: Scalp contusion Discharge Plan Departure Patient Disposition: Home Clinical Impression: Contusion of scalp Qualifiers: Encounter type: initial encounter Qualified Code(s): S00.03XA - Contusion of scalp, initial encounter Cervical strain, acute Qualifiers: Encounter type: initial encounter Qualified Code(s): S16.1XXA - Strain of muscle, fascia and tendon at neck level, initial encounter Instructions: DI for Cervical Muscle Strain, DI for Closed Head Injury Activity Restrictions/Additional Instructions: Your exam and CAT scan imaging are reassuring. You likely have contusion to you r scalp and stranding of your neck. Please do continue home medications. Return if worse if any questions or concerns. See family doctor in a week for re-evaluation. Prescriptions: No Action (DME) Disabled Parking Permit See Rx Instructions .ROUTE .MEDSUPPLY Qty: 1 0RF Rx Instructions: I find this person to be disabled amiodarone 200 mg tablet 200 mg PO DAILY Rx Instructions: Take 200mg BID x 14days. Start 200mg QD Jul. Eliquis 5 mg tablet 5 mg PO BID Qty: 180 3RF atorvastatin 20 mg tablet 20 mg PO QPM Qty: 90 3RF metoprolol succinate [Toprol XL] 25 mg tablet extended release 24 hr 12.5 mg PO BID Qty: 90 3RF lisinopril 40 mg tablet 20 mg PO DAILY Qty: 90 3RF calcium carb and citrat-mag ox 200 mg calcium- 50 mg tablet 2 tab PO 1XD gabapentin 300 mg capsule 300 mg PO BID Qty: 180 3RF methocarbamol 500 mg tablet 500 mg PO 3XD PRN (Reason: muscle spasm) tramadol 50 mg tablet 50 mg PO DAILY PRN (Reason: pain) Qty: 30 0RF Rx Instructions: Take one tablet every 8 hours with one 650mg Tylenol for chronic intermittent neck pain hydrocodone-acetaminophen 5-325 mg tablet 1 tab PO Q4-6H PRN (Reason: pain) Qty: 20 0RF Referrals: Alonso Cervantes MD [Primary Care Provider, Family Practice] Stand Alone Forms: Patient Portal/API
[2025-07-09 15:52] VITALS: BP 116/59; PULSE 60; O2SAT 94
== END 2025-07-09 15:52 | disposition home or self-care (01) ==
PROVIDERS: Emergency Provider Emergency Medicine; PCP Family Medicine
DX: S00.03XA Contusion of scalp, initial encounter (principal); S16.1XXA Strain of muscle, fascia and tendon at neck level, initial encounter; Z79.01 Long term (current) use of anticoagulants; W18.30XA Fall on same level, unspecified, initial encounter
CPT/HCPCS: 70450; 72125; 99281; 99284

== ENCOUNTER → 2025-09-02 15:10 | Outpatient (CLI) | payer OTHER, SELFPAY ==
[2025-09-02 16:37] LABS: Coronavirus NL 63 Not Detected (Not Detect); SARS- CoV-2 Not Detected (Not Detecte)
== END ==
PROVIDERS: PCP Family Medicine; Visit Provider Physician Assistant
DX: R05.1 Acute cough (principal)
CPT/HCPCS: 87633

== ENCOUNTER → 2025-09-02 15:39 | Outpatient (CLI) | payer OTHER, SELFPAY ==
--- NOTE | 2025-09-02 15:40 | DI.RAD.S_ITS ---
PROCEDURE: XR CHEST 2V INDICATIONS: Cough wheezing suspected pneumonia TECHNIQUE: 2 views of the chest were acquired. COMPARISON: [facility], [place], XR CHEST 2V, 02/27/2021, 11:50. [facility], [place], CHEST 2 VIEW, 02/28/2017, 16:29. FINDINGS: Surgical changes and devices: Dual lead pacemaker device with tips in the right atrial appendage and right ventricle. Lungs and pleura: Lungs are clear. No pleural effusions or pneumothorax. Mediastinum: Mediastinal contours are normal. Heart size is normal. Bones and chest wall: No suspicious bony abnormalities. Soft tissues appear unremarkable. IMPRESSION: No acute cardiopulmonary abnormality is seen. Dictated by: Mikael Greenberg M.D. on 09/03/2025 at 15:27 Approved by: Mikael Greenberg M.D. on 09/03/2025 at 15:27
== END ==
PROVIDERS: PCP Family Medicine; Referring Provider Physician Assistant; Visit Provider Physician Assistant
DX: J18.9 Pneumonia, unspecified organism (principal); R05.1 Acute cough
CPT/HCPCS: 71046; 87633